=== PATIENT | male | born 1960 | race Caucasian/White ===

== ENCOUNTER 2025-03-09 10:01 | Inpatient (IN) ==
--- NOTE | 2025-02-09 12:58 | PAT Medication Instructions ---
Medication Instructions Date of Service February 09, 2025 Home Medications metoprolol tartrate 50 mg tablet 50 mg PO QAM naproxen sodium 220 mg tablet (Aleve) 220 mg PO BID PRN Pain ASK your surgeon for instructions naproxen sodium 220 mg tablet (Aleve) 220 mg PO BID PRN Pain Take morning of surgery With a small sip of water, OTHERWISE NOTHING TO EAT OR DRINK AFTER MIDNIGHT: metoprolol tartrate 50 mg tablet 50 mg PO QAM Other Notes If you have any questions please call us at [phone] or [phone] or [phone] or [phone]
--- NOTE | 2025-02-13 11:24 | Anesthesiology Consultation ---
Date of Service February 13, 2025 Assessment & Plan (1) Encounter for pre-operative examination: Chart Review Chart Review: Acceptable Risk for Surgery (pending surgeon ordered PCP clearance ) and Patient seen in Pre Admission Testing - Awaiting PCP clearance 02/17/25 (Dr Allan) Per PAT appt on 02/13/25, no recent illness/disease exposures, illness related symptoms, or recent illness/disease positive tests. Will leave to surgeon's discretion if preop Covid testing needed Teaching & Discussion Pre-Anesthesia Teaching/Discussion Notes: Instructed NPO after midnight before surgery,except medications with 15 cc of water. Medication instructions provided according to the PAT guidelines. History Surgery Operation Date: 03/09/25 09:05 Proposed Procedures p T12-L3, L5-S1 Decompression and Fusion, L3-L5 Hardware Removal, Spinal Cord Monitoring - Salazar Fuller DO Height/Weight Height: 5 ft 9 in Weight: 82.1 kg Allergies Allergy/AdvReac Type Severity Reaction Status Date / Time No Known Allergies Allergy Unverified 02/09/25 07:56 Medications Home Medications Medication Instructions Recorded Confirmed Last Taken metoprolol tartrate 50 mg tablet 50 mg PO QAM 02/09/25 02/09/25 Unknown naproxen sodium 220 mg tablet 220 mg PO BID PRN Pain 02/09/25 02/09/25 Unknown (Aleve) Past Medical History Medical History (Updated 02/13/25 @ 11:36 by Zahra Dickens PA-C) Heart murmur "slight" noted in the per patient- no recent mention of heart murmur per patient, no cardio no murmur noted at PAT visit 02/13/25 HTN (hypertension) Slow to wake up after anesthesia had issues once, not sure which procedure Snores no sleep study done; sleeps alone- witnessed apnea unknown Tremor Right hand- over the past several months - stable - will discuss with PCP at upcoming preop appt Exercise / Class Metabolic Activity III < 4 Walking/Shop/Light housework (no chest pain or SOB with flat surface ambulation- uses walker in public ) Past Family History Family History Other No family history of adverse response to anesthesia Past Surgical History Surgical History History of hand surgery right, "crush injury" History of lumbar fusion (2010) L3,4,5 Hx of cervical spine surgery (1992) unsure of level, mild ROM limits Past Anesthesia History No Hx of Anesthesia Complications (with exception to remote history of slow to wake (unsure of what surgery (either hand or neck surgery))- just groggy- no reintubation or ICU stay ) and No Family Hx of Anesthesia Complications History of PONV No Hx of PONV and No Hx of Motion Sickness Social History Smoking Status: Former smoker Smoking cigarettes per day: quit ~beginning of January 2025 Do You Dip or Chew Tobacco: No Hx Alcohol Use: Yes alcohol intake frequency: a few times a month Hx Substance Use: No substance use type: does not use Review of Systems Patient denies chest pain, shortness of breath at rest, reflux, cough, wheezing, palpitations. No hx of seizures, stroke, [place]. No hx of blood clots or blood transfusions Physical Exam Vital Signs VITALS BP 124/75 P 61 TEMP 97.5 SP02 98% RESP 16 Constitutional no acute distress ENMT Mouth: no TMJ clicking Thyromental Distance: < 3.5 Finger Breadths ( 2.5 ) Mallampati Class: II Front bottom tooth - permanent implant Missing molars and side teeth Neck + limited neck extension and + facial hair (advised to trim/shave ) Respiratory normal respiratory effort; no respiratory distress Auscultation: lungs clear to auscultation bilaterally; no wheezes Cardiovascular Rate/Rhythm: regular rate and regular rhythm Heart Sounds: no murmur Vessels: no carotid bruit Musculoskeletal Spine: + pain with cervical ROM Extremities: extremities normal to inspection Psychiatric Orientation: alert Lab Results Anesthesia Preop Results Results Anesthesia Widget: WBC 4.88 K/ul (4.8-10.8) 02/13/25 Hgb 13.9 g/dl (14.0-18.0) L 02/13/25 Hct 41.8 % (42.0-52.0) L 02/13/25 Plt 144 K/uL (130-400) 02/13/25 Na 139 mmol/L (136-145) 02/13/25 K 4.2 mmol/L (3.5-5.1) 02/13/25 Cl 105 mmol/L (98-107) 02/13/25 CO2 28 mmol/L (21-32) 02/13/25 BUN 29 mg/dl (6-23) H 02/13/25 Creat 1.00 mg/dl (0.6-1.4) 02/13/25 Glucose Level 92 mg/dl (70-99(Fasting)) 02/13/25 PT 10.6 Seconds (9.0-12.0) 02/13/25 PTT 26 Seconds (21-31) 02/13/25 INR 1.0 (0.9-1.1) 02/13/25 Urine Color Yellow 02/13/25 Urine Appearance Clear (Clear) 02/13/25 Urine pH 5.5 (4.5-7.5) 02/13/25 Urine Specific [place] 1.023 (1.000-1.030) 02/13/25 Urine Protein Negative (Negative) 02/13/25 Urine Glucose (UA) Negative (Negative) 02/13/25 Urine Ketones 1+ (Negative) H 02/13/25 Urine Blood Negative (Negative) 02/13/25 Urine Nitrite Negative (Negative) 02/13/25 Urine Bilirubin Negative (Negative) 02/13/25 Urine Urobilinogen Negative (Negative) 02/13/25 Urine Leukocyte Esterase Negative (Negative) 02/13/25 Blood Type B Positive 02/13/25 Antibody Screen NEGATIVE 02/13/25 Testing Electrocardiogram Date: 02/13/25 Findings: + NSR @ (60bpm ) Normal EKG per cardio Chest X-Ray Date: 02/13/25 Findings: + NAD FINDINGS: Heart size and pulmonary vasculature are normal. Lungs are mildly hyperexpanded. No consolidation or pleural effusion.
[2025-03-09] MEDS ORDERED: DEXAMETHASONE SOD INJ 4 MG/ML VIAL ONE (10:11)
[2025-03-09] MEDS ORDERED: GLYCOPYRROLATE 0.2 MG/ML VIAL ONE (10:11)
[2025-03-09] MEDS ORDERED: LIDOCAINE 2% 2 ML VIAL/AMP(20MG/ML) INFIL ONE (10:11)
[2025-03-09] MEDS ORDERED: ROCURONIUM BROMIDE 10 MG/ML 5 ML VIAL IV ONE (10:11)
[2025-03-09] MEDS ORDERED: ONDANSETRON INJ 2 MG/ML 2 ML VIAL ONE (10:11)
[2025-03-09] MEDS ORDERED: MIDAZOLAM HCL 1 MG/ML 2ML VIAL ONE (10:11)
[2025-03-09] MEDS ORDERED: PROPOFOL IV EMULSION 10 MG/ML 20 ML VIAL IV ONE (10:11)
[2025-03-09] MEDS ORDERED: SUGAMMADEX SODIUM 200 MG/2 ML VIAL IV ONE (10:12)
[2025-03-09] MEDS: LR 15ML/HR IV SCH (10:47)
[2025-03-09] MEDS: LR 60ML/HR IV SCH (10:47)
[2025-03-09] MEDS: CeleBREX 200 MG CAP PO SCH (10:47)
[2025-03-09] MEDS: GABAPENTIN 300 MG CAP PO SCH (10:48)
[2025-03-09] MEDS: ACETAMINOPHEN 500 MG TAB PO SCH (10:48)
--- NOTE | 2025-03-09 12:39 | History & Physical Bridge Note ---
Date of Service March 09, 2025 History & Physical Bridge Note I have examined the patient, reviewed the History & Physical and in the interval since the performance of the History & Physical I have noted the following changes of clinical significance: no changes noted
--- NOTE | 2025-03-09 12:41 | History & Physical Report ---
Date of Service March 09, 2025 Assessment & Plan (1) Multilevel lumbosacral spondylosis with radiculopathy: Plan: Decompression and fusion T12-L3, L5-S1, hardware removal L3-L5 History of Present Illness Chief Complaint: Back and leg pain Primary Care Provider: Be Allan This is a 65-year-old male with chronic persistent back and leg pain after failing since course of nonoperative care is here for surgical invention. Allergies Allergy/AdvReac Type Severity Reaction Status Date / Time No Known Allergies Allergy Verified 03/09/25 10:21 Home Medications Medication Instructions Recorded Confirmed Type metoprolol tartrate 50 mg tablet 50 mg PO QAM 02/09/25 03/09/25 History naproxen sodium 220 mg tablet 220 mg PO BID PRN Pain 02/09/25 03/09/25 History (Aleve) Past Med/Surg History Problem List (Updated 03/09/25 @ 12:40 by Salazar Fuller DO) Multilevel lumbosacral spondylosis with radiculopathy Encounter for pre-operative examination Medical History (Updated 03/09/25 @ 12:40 by Salazar Fuller DO) Tremor Right hand- over the past several months - stable - will discuss with PCP at upcoming preop appt Slow to wake up after anesthesia had issues once, not sure which procedure Heart murmur "slight" noted in the per patient- no recent mention of heart murmur per patient, no cardio no murmur noted at PAT visit 02/13/25 Snores no sleep study done; sleeps alone- witnessed apnea unknown HTN (hypertension) Surgical History Hx of cervical spine surgery (1992) unsure of level, mild ROM limits History of hand surgery right, "crush injury" History of lumbar fusion (2010) L3,4,5 Family History Other No family history of adverse response to anesthesia Social History Smoking Status: Former smoker Tobacco Type: Cigarettes Cigarettes Per Day: quit ~beginning of January 2025; Second Hand Exposure: No; Do You Dip or Chew Tobacco: No; Tobacco Cessation Education Requested by Patient: No Hx Alcohol Use: Yes Hx Substance Use: No Preferred Language: Urdu Communication Ability: Effective Video Game Creator Required: No Beliefs That Will Affect Care: None Current Living Situation: Alone Other Information That Helps Us Care for You: No Feels Safe at Home: Yes Safety Concerns: Feels Safe At This Time Assistive Devices: Glasses, Hearing Aid - Bilateral and Walker Assistive Devices Comment: dental implant Physical Exam Physical Exam: Patient is alert and oriented Heart regular rhythm Lungs clear Results & Data Results & Data Vital Signs (Past 12 Hours) Vital Signs Temp Pulse Resp BP Pulse Ox O2 Del Method 03/09/25 10:23 36.5 C 57 L 20 149/85 H 96 Room Air
[2025-03-09] MEDS ORDERED: ATROPINE SULFATE 0.1 MG/ML 10ML SYR IV PRN (12:43)
[2025-03-09] MEDS ORDERED: ONDANSETRON INJ 2 MG/ML 2 ML VIAL IV PRN ×2 (12:43→18:36)
[2025-03-09] MEDS ORDERED: HYDROmorphone INJ 2 MG/ML SYR/VIAL IV PRN (12:43)
[2025-03-09] MEDS: BUPIVACAINE/EPINEPHRINE 0.25% 1:200,000 30 ML VIAL ONE (13:34)
[2025-03-09] MEDS: ceFAZolin 330 MG/ML 1 GM VIAL ONE ×2 (13:34→14:39)
[2025-03-09] MEDS ORDERED: PHENYLEPHRINE 100MCG/ML 5ML SYR ONE (16:34)
[2025-03-09] MEDS: FLOSEAL HEMOSTATIC MATRIX 10ML TOP ONE (16:42)
--- NOTE | 2025-03-09 16:54 | Operative Report ---
Post Operative Report Pre & Post Diagnosis Operation Date: 03/09/25 11:25 Pre-Op Diagnosis: #1 multilevel Lumbosacral Spondylosis with Radiculopathy. #2 lumbar spinal stenosis Post-Op Diagnosis: Same I identified the patient and participated in the time-out.: Yes Procedure Operation Date: 03/09/25 11:25 Actual Procedures #1 removal of posterior instrumentation L3-L5. #2 exploration of fusion L3-L5 #3 lumbar decompression with bilateral medial facetectomies and foraminotomies T12-L1, L1-L2, L2-L3, and L5-S1 with bilateral medial facetectomies and fo raminotomies. #4 posterior spinal fusion T12-S1. #5 placement of posterior segmental instrumentation T12-S1 using camber. #6 interbody fusion L2-L3 L5-S1. #7 placement of 12 x 26 mm Spira cage at L2-L3 and 15 x 26 mm x 2 at L5-S1. #8 placement locally harvested morselized autograft in the posterior gutters. Placement infuse collagen sponge, with Koros in the posterior lateral gutters and os design interbody space. #10 application of versa wrap over the exposed dura. Surgeon Salazar Fuller, DO Farm Service Adviser Liza Carter Estimated Blood Loss 1,100 Findings Consistent with Post-Op Diagnosis Specimens None Indications This is a 65-year-old male who presents from his diagnosis of failed course of nonoperative care is here for surgical invention. Description of Procedure Patient was met with identified informed consent obtained. Patient was then taken to the operative suite underwent intubation placed in a prone position on the Matias table on top of the Cedrick frame. All bony prominences well-padded I suspected to ensure no external pressure placed upon them. This point the lumbar spine was prepped and draped in a sterile fashion. Sharp dissection with the assistance of Bovie cautery is performed down to and exposing the lamina and transverse processes of T12 L1-L2 instrumentation at L3-L4-L5 and the sacral ala bilaterally. And then proceeded to remove the hardware bilaterally explored the fusion mass noting it to be mature and intact. And then formed a complete laminectomy of L5 with bilateral medial facetectomies and foraminotomies addressing severe spinal stenosis and excision of facet cyst. Then proceeded to perform a complete laminectomy of L2, L1 and partial laminectomy of T12 including bilateral medial facetectomies to address all subarticular and foraminal stenosis. Pedicle screws were then placed in T12 L1-L2-L3 L5 and S1 levels bilaterally with assistance of fluoroscopy and the appropriately sized liv cuts contoured and placed. By way of a transforaminal approach on the right a discectomy of L5-S1 was performed endplates curetted to subcortical bleeding bone and a 15 x 26 mm spiral cage tapped into position. Then proceeded to the left transforaminal region at L5-S1. Again discectomy performed. Endplates guided to subcortical bony bone. A second 15 x 26 mm spiral cage tapped in position. Then proceeded to L2-L3 by way of a transforaminal approach on the left complete discectomy was performed endplates corrected to subcortical bleeding bone and a 12 x 26 mm spiral cage tapped into position. Please note all cages were filled with os design bone graft. Rods were then locked in a final position bilaterally. The transverse processes of T12 L1-L2-L3 L5 and sacral ala burred to subcortical bleeding bone. Infuse collagen sponge bath Koros and local autograft placed in the posterior lateral gutters. First wrap placed over the exposed dura. 15 round DOMENIC drain inserted. The incision was then closed with 1 Vicryl the fascia 2-0 Vicryl subcutaneously and 4 Monocryl for final skin closure. Steri-Strips sterile dressing placed. Patient waken taken PACU stable condition. Please note Liza Carter was present out the entire procedure involved the patient positioning complex portions of the surgery and final skin closure. Im ordering 10 grams of Collagen Powder ([facility] A6010 Primary Dressing) and 10 bordered super absorbent ([facility] A6196 Secondary Dressing) to treat an incision wound that was caused by a spine procedure. The incision is approximately 2 cm(W) x 2 cm(L) down to the spinal column and epidural space 2 cm (D) in size and is a full thickness wound showing no signs of infection. Collagen comes in 1 gram packets so 10 packets were ordered. Given the size of the wound, with moderate exudate I chose to order a 10 day supply. The patient will be provided instructions for proper application of the collagen wound kit. The patient will be asked to apply the collagen powder daily and then cover it with sterile dressings dispensed. Collagen was selected as I expect the collagen to attract monocytes and fibroblasts, act as a sacrificial substrate for MMPs, and ultimately proved a matrix for tissue and vessel growth. The collagen will act as a primary dressing in this scenario. It is medically necessary for proper healing of these wounds to improve bioavailability and contact with each wound surface, this is also to help prevent infection of wounds and promote healing ultimately leading to a better healing outcome and limit the risk of infection. I attest to the content of the Intraoperative Record and any orders documented therein. Any exceptions are noted below.
[2025-03-09] MEDS ORDERED: ALUMINUM/MAGNESIUM SUSP 30 ML UDC PO PRN (18:36)
[2025-03-09] MEDS ORDERED: METOCLOPRAMIDE HCL INJ 5 MG/ML 2 ML VIAL IV PRN (18:36)
[2025-03-09] MEDS ORDERED: PROMETHAZINE 12.5 MG/50.5 ML BAG IV PRN (18:36)
[2025-03-09] MEDS ORDERED: ONDANSETRON 4 MG OD TAB PO PRN (18:36)
[2025-03-09] MEDS ORDERED: DO NOT ADMINISTER PNEUMOCOCCAL VACCINE PRN (18:36)
[2025-03-09] MEDS ORDERED: HYDROmorphone INJ 1 MG/ML SYRINGE IV PRN (18:36)
[2025-03-09] MEDS ORDERED: DO NOT ADMINISTER FLU VACCINE PRN (18:36)
[2025-03-09] MEDS ORDERED: SOD PHOSPHATE/SOD BIPHOSPHATE ENEMA 132 ML BTL PR PRN (18:36)
[2025-03-09] MEDS ORDERED: HYDROmorphone INJ 0.5 MG/0.5 ML SYR IV PRN (18:36)
[2025-03-09] MEDS ORDERED: NALOXONE HCL 0.4 MG/1 ML VIAL/CARP IV PRN (18:36)
[2025-03-09] MEDS ORDERED: FAMOTIDINE 20 MG TAB PO PRN (18:36)
[2025-03-09] MEDS ORDERED: diphenhydrAMINE Capsule 25 MG CAP PO PRN (18:36)
[2025-03-09] MEDS ORDERED: LORazepam 0.5 MG TAB PO PRN (18:36)
--- NOTE | 2025-03-09 18:45 | Hospitalist Consultation ---
Date of Consultation March 09, 2025 Assessment & Plan (1) Multilevel lumbosacral spondylosis with radiculopathy: (2) S/P spinal surgery: Patient is a 65-year-old male with past medical history significant for HTN who is being seen in consultation for routine postoperative medical management after undergoing elective decompression and fusion at T12-L3/L5-S1 and hardware removal at L3-L5 performed [address] Dr[address] Fuller earlier today. Per primary service for pain control, wound care, anticoagulation and activities Continue incentive spirometry, PT/OT when appropriate as per primary team Monitor H/H for ABLA (preop Hgb = 13.9; EBL = 1.1L) and transfuse blood products PRN (3) Postoperative hypotension: Notable postop hypotension w/ most recent BP documented at 82/45 Pt asymptomatic lying in bed Hold home Lopressor Stat BMP and CBC pending 500cc NSS bolus plus additional 1L NSS IV albumin 50gm Follow BP trend and labs --> pt signed out to area field manager, Dr. Ramirez, to f/u on via TT DVT Prophylaxis: As per primary service PCP: Be Allan DO [[facility]] Disposition: D/c planning as per primary service Thank you for this consultation. We will follow the patient with you during their hospital stay. You can reach a [facility] via [employer]. Patient seen in collaboration with Dr. Horvath. Please see addendum. I spent a total of 48 minutes coordinating, documenting, and providing care for this patient excluding time spent in the performance of separately billed services or time spent by another provider/QHP. This included personally reviewing all current laboratories and imaging studies, medical reconciliation, outpatient chart review and discussion with specialists. This chart was completed in part utilizing Speech Voice Recognition Software. Grammatical errors, random word insertions, pronoun errors, and incomplete sentences are an occasional consequence of this system due to software limitations, ambient noise, and hardware issues. Any formal questions or concerns about the content, text, or information contained within the body of this dictation should be directly addressed to the provider for clarification. Supervising Physician Co-Signing Physician Notes 65-year-old male was seen and examined at bedside as a medical consult status post spine surgery. He was lying in bed, on room air, NAD. He denies any shortness of breath/palpitation/chest pain/dizziness. Patient lost about 1.1 L of blood during operation today. Blood pressure running soft. Will continue NSS at 125 mL an hour for 1 bags, IV albumin 2 bag. Hold BP meds. Get CBC and BMP stat, possible transfuse blood if significant drop in hemoglobin given low blood pressure. Patient reports improvement in his BLE radicular symptoms after the surgery, reports operative site pain under control. On exam: Patient on room air, lower back dressing without soakage, DOMENIC drain with minimal serosanguineous collection noted. Rest of the examination as above. Total time spent independently: 14 minutes. I have seen and examined the patient and have discussed the case with the provider above. I agree with the assessment and plan as stated. History of Present Illness Reason for Consultation: Routine postoperative medical management Requesting Physician: Salazar Fuller DO Attending Physician: Salazar Fuller DO History of Present Illness Patient is a 65-year-old male with past medical history significant for HTN who is being seen in consultation for routine postoperative medical management after undergoing elective decompression and fusion at T12-L3/L5-S1 and hardware removal at L3-L5 performed by Dr. Fuller earlier today. History obtained from the patient and associated chart review. Patient endorses adequate pain control postoperatively. Has been hypotensive postoperatively however patient denies any lightheadedness/dizziness or visual disturbances. Of note, patient did have an EBL of 1.1L during surgery. Patient endorses a dry mouth but is tolerating sips of water without issue. Denies any chest pain or SOB. Has Ordonez catheter in place which is draining clear yellow urine without issue. Allergies Allergy/AdvReac Type Severity Reaction Status Date / Time No Known Allergies Allergy Verified 03/09/25 10:21 Home Medications Medication Instructions Recorded Confirmed Type metoprolol tartrate 50 mg tablet 50 mg PO QAM 02/09/25 03/09/25 History naproxen sodium 220 mg tablet 220 mg PO BID PRN Pain 02/09/25 03/09/25 History (Aleve) Patient History Medical History Tremor Right hand- over the past several months - stable - will discuss with PCP at upcoming preop appt Slow to wake up after anesthesia had issues once, not sure which procedure Heart murmur "slight" noted in the per patient- no recent mention of heart murmur per patient, no cardio no murmur noted at PAT visit 02/13/25 Snores no sleep study done; sleeps alone- witnessed apnea unknown HTN (hypertension) Surgical History Hx of cervical spine surgery (1992) unsure of level, mild ROM limits History of hand surgery right, "crush injury" History of lumbar fusion (2010) L3,4,5 Family History Other No family history of adverse response to anesthesia Social History Smoking Status: Former smoker Tobacco Type: Cigarettes Cigarettes Per Day: quit ~beginning of January 2025; Second Hand Exposure: No; Do You Dip or Chew Tobacco: No; Tobacco Cessation Education Requested by Patient: No Hx Alcohol Use: Yes Hx Substance Use: No Preferred Language: Kittitian Communication Ability: Effective Water Conservationist Required: No Beliefs That Will Affect Care: None Current Living Situation: Alone Other Information That Helps Us Care for You: No Feels Safe at Home: Yes Safety Concerns: Feels Safe At This Time Assistive Devices: Glasses, Hearing Aid - Bilateral and Walker Assistive Devices Comment: dental implant Review of Systems Review of Systems: At least ten systems reviewed and negative, except as noted in the HPI. Physical Exam Physical Exam: General: WD/WN, NAD, laying down in bed, A&Ox3, conversing appropriately but appears lethargic postoperatively HEENT: Normocephalic, atraumatic, external ear and nose normal, oropharynx dry Respiratory: Normal respiratory effort, lungs clear to auscultation bilaterally Cardiovascular: Regular rate, rhythm, normal peripheral pulses, no BLE edema Abdomen/GI: Normal bowel sounds, soft, nontender to palpation in all quadrants : Ordonez catheter intact and draining clear yellow urine without issue Extremities/MSK: No cyanosis or clubbing, surgical dressing on back C/D/I, DOMENIC drain x 1 intact and draining sanguineous output Neurologic: No overt focal deficits, CN's II-XI not formally tested but appear grossly intact bilaterally Results & Data Results & Data Vital Signs (Past 12 Hours) Vital Signs Temp Pulse Pulse Resp BP Pulse Ox O2 Del Method 03/09/25 18:30 36.7 C 76 15 94/56 L 96 Room Air 03/09/25 18:20 76 16 105/54 L 93 Room Air 03/09/25 18:10 79 14 103/60 93 Room Air 03/09/25 18:00 36.4 C L 84 15 110/64 95 Nasal Cannula 03/09/25 17:50 77 12 106/66 100 Oxymask 03/09/25 17:40 88 15 102/67 100 Oxymask 03/09/25 17:30 93 H 16 103/69 100 Oxymask 03/09/25 17:20 102 H 16 99/66 L 100 Oxymask 03/09/25 17:12 36.8 C 70 20 111/69 100 Oxymask 03/09/25 10:23 36.5 C 57 L 20 149/85 H 96 Room Air O2 Flow Rate 03/09/25 18:30 03/09/25 18:20 03/09/25 18:10 03/09/25 18:00 2 03/09/25 17:50 4 03/09/25 17:40 6 03/09/25 17:30 10 03/09/25 17:20 10 03/09/25 17:12 10 03/09/25 10:23
--- NOTE | 2025-03-09 18:47 | Anesthesiology Progress Note ---
Date of Service March 09, 2025 Anesthesia Post Procedure Vital Signs Vital Signs: Temp Pulse Pulse Resp BP Pulse Ox O2 Del Method 03/09/25 18:30 36.7 C 76 15 94/56 L 96 Room Air 03/09/25 18:20 76 16 105/54 L 93 Room Air 03/09/25 18:10 79 14 103/60 93 Room Air 03/09/25 18:00 36.4 C L 84 15 110/64 95 Nasal Cannula 03/09/25 17:50 77 12 106/66 100 Oxymask 03/09/25 17:40 88 15 102/67 100 Oxymask 03/09/25 17:30 93 H 16 103/69 100 Oxymask 03/09/25 17:20 102 H 16 99/66 L 100 Oxymask 03/09/25 17:12 36.8 C 70 20 111/69 100 Oxymask 03/09/25 10:23 36.5 C 57 L 20 149/85 H 96 Room Air O2 Flow Rate 03/09/25 18:30 03/09/25 18:20 03/09/25 18:10 03/09/25 18:00 2 03/09/25 17:50 4 03/09/25 17:40 6 03/09/25 17:30 10 03/09/25 17:20 10 03/09/25 17:12 10 03/09/25 10:23 Pain Intensity Back: Pain Intensity: 3 Transfer of Care Handoff Completed per policy Notes Mental Status: alert / awake / arousable and participated in evaluation Patient Amnestic to Procedure: Yes Nausea / Vomiting: adequately controlled Pain: adequately controlled Airway Patency, RR, SpO2: stable & adequate BP & HR: stable & adequate Hydration State: stable & adequate Anesthetic Complications: no major complications apparent and Pt Satisfied with anesthetic care
[2025-03-09] MEDS: SODIUM CHLORIDE 0.9% 500 ML IV ONE (19:21)
[2025-03-09 19:42] LABS: Hematocrit (blood only) 32.0 % (42.0-52.0); Hemoglobin 10.4 g/dl (14.0-18.0); Mean Corpuscular Hemoglobin 30.6 pg (25.0-34.0); Mean Corpuscular Volume 94.1 fL (80.0-100.0); Platelet Count 125 K/uL (130-400); RDW Standard Deviation 44.9 fL (36.4-46.3); Red Blood Count 3.40 M/uL (4.70-6.10); White Blood Count 12.00 K/ul (4.8-10.8)
[2025-03-09] MEDS: ALBUMIN 25% 25 GM/100 ML VIAL IV SCH (19:48)
[2025-03-09] MEDS: SODIUM CHLORIDE 0.9% 1,000 ML IV SCH (19:55)
[2025-03-09 20:01] LABS: Anion Gap 8.0 (3-11); Blood Urea Nitrogen 20.0 mg/dl (6-23); Calcium 8.1 mg/dl (8.6-10.3); Carbon Dioxide 24.0 mmol/L (21-32); Chloride 108.0 mmol/L (98-107); Creatinine Clr Calc Pharmacy 65.5 ml/min; Glucose 162.0 mg/dl (70-99(Fasting)); Potassium 4.1 mmol/L (3.5-5.1); Sodium 140.0 mmol/L (136-145)
[2025-03-09 20:02] LABS: Immature Granulocytes # (auto) 0.09 K/uL (0.01-0.20); Immature Granulocytes % (auto) 0.8 %
[2025-03-09] MEDS: DOCUSATE SODIUM/SENNA 50/8.6MG TAB PO SCH (20:35)
[2025-03-09] MEDS: ACETAMINOPHEN 1,000 MG/100 ML VIAL IV PRN (22:10)
[2025-03-10 05:56] LABS: Hematocrit (blood only) 24.2 % (42.0-52.0); Hemoglobin 7.8 g/dl (14.0-18.0); Immature Granulocytes # (auto) 0.04 K/uL (0.01-0.20); Immature Granulocytes % (auto) 0.4 %; Mean Corpuscular Hemoglobin 30.6 pg (25.0-34.0); Mean Corpuscular Volume 94.9 fL (80.0-100.0); Platelet Count 107 K/uL (130-400); RDW Standard Deviation 45.1 fL (36.4-46.3); Red Blood Count 2.55 M/uL (4.70-6.10); White Blood Count 9.05 K/ul (4.8-10.8)
[2025-03-10] MEDS: POLYETHYLENE (MIRALAX) 17 GM PACK PO SCH (06:01)
[2025-03-10 06:10] LABS: Anion Gap 6.0 (3-11); Blood Urea Nitrogen 20.0 mg/dl (6-23); Calcium 7.7 mg/dl (8.6-10.3); Carbon Dioxide 26.0 mmol/L (21-32); Chloride 106.0 mmol/L (98-107); Creatinine Clr Calc Pharmacy 83.5 ml/min; Glucose 129.0 mg/dl (70-99(Fasting)); Magnesium 1.7 mg/dl (1.7-2.4); Potassium 4.3 mmol/L (3.5-5.1); Sodium 138.0 mmol/L (136-145)
[2025-03-10 06:23] LABS: RBC Morphology Unremarkable
--- NOTE | 2025-03-10 07:37 | Fluoroscopy Report ---
FL lumbar spine 2-3V CLINICAL HISTORY: T12-L3, L5-S1 D/F L3-L5 REMOVAL COMPARISON STUDY: Lumbar spine fluoroscopic images December 13, 2010. Fluoroscopy time: 28 seconds. Number of fluoroscopic images: 5. Ka,r: 12.84 mGy. FINDINGS: Fluoroscopy was provided during hardware removal. Previous L4-L5 disc space is noted. Inter kassandra L2-L3 and L5-S1 discectomy with interbody spacer placement as noted. There are bilateral pedicle screws at the T12, L1, L2, L3, L4-5 and S1 levels with interconnecting rods. Hardware is intact. IMPRESSION: Fluoroscopy provided during hardware removal and subsequent multilevel decompression and fusion extending from T12 through S1, as described above. ACT 112: Negative or not required by law. Electronically signed by: Ronny Márquez M.D. 03/10/2025 7:35 AM
[2025-03-10] MEDS ORDERED: SODIUM CHLORIDE 0.9% 100 ML IV PRN (07:38)
[2025-03-10] MEDS: SODIUM CHLORIDE 0.9% 500 ML IV ONE (07:51)
[2025-03-10] MEDS: diphenhydrAMINE Capsule 25 MG CAP PO ONE (07:54)
[2025-03-10] MEDS: ACETAMINOPHEN 325 MG TAB PO ONE (07:54)
[2025-03-10] MEDS ORDERED: METOPROLOL TARTRATE 50 MG TAB PO SCH (09:00)
[2025-03-10] MEDS: dexAMETHasone 6 MG in SYRINGE 0 ML IV SCH (09:25)
[2025-03-10] MEDS: COUGH DROP (SUGAR FREE) LOZ 24 LOZ/1 BOX BUCCAL ONE (09:32)
--- NOTE | 2025-03-10 10:24 | Orthopedic Progress Note ---
Date of Service March 10, 2025 Assessment & Plan (1) Multilevel lumbosacral spondylosis with radiculopathy: Plan: At this time he is receiving a unit of blood. Will initiate physical therapy later today. Admission and Anticipated Discharge Date Admission Date: March 09, 2025 Subjective Back pain is controlled leg pain improved Physical Exam Physical Exam: Patient is currently in bed. Discussed active testing. Results & Data Vital Signs (Past 12 Hours) Vital Signs Temp Pulse Pulse Resp BP BP BP 03/10/25 10:07 36.6 C 73 16 103/62 03/10/25 09:29 103/61 03/10/25 09:07 36.3 C L 70 16 98/58 L 03/10/25 08:34 36.4 C L 73 16 99/61 L 03/10/25 08:22 36.6 C 73 18 99/59 L 03/10/25 08:04 36.7 C 75 16 96/54 L 03/10/25 07:52 70 18 105/56 L 03/10/25 07:33 91/52 L 03/10/25 07:29 36.8 C 65 17 90/43 L 03/10/25 05:32 36.5 C 73 18 106/57 L 03/10/25 01:30 36.6 C 76 18 100/52 L Pulse Ox O2 Del Method 03/10/25 10:07 100 03/10/25 09:29 03/10/25 09:07 100 03/10/25 08:34 03/10/25 08:22 100 03/10/25 08:04 99 03/10/25 07:52 99 Room Air 03/10/25 07:33 03/10/25 07:29 100 Room Air 03/10/25 05:32 100 Room Air 03/10/25 01:30 100 Room Air Queries Orthopedic Spine Acute Posthemorrhagic Anemia: Yes
--- NOTE | 2025-03-10 12:00 | Hospitalist Progress Note ---
Date of Service March 10, 2025 Assessment & Plan (1) S/P spinal surgery: (2) Multilevel lumbosacral spondylosis with radiculopathy: (3) Acute blood loss anemia: (4) Postoperative hypotension: (5) HTN (hypertension): (6) Urinary retention: Plan: Patient is a 65-year-old male with past medical history significant for HTN who is being seen in consultation for routine postoperative medical management after undergoing elective decompression and fusion at T12-L3/L5-S1 and hardware removal at L3-L5 performed [address] Dr[address] Fuller earlier today. S/p spinal surgery POD#7 s/p T12-L3/L5-S1 and hardware removal at L3-L5 performed by Dr. Fuller Per ortho for pain control, wound care, anticoagulation and activities Continue incentive spirometry, PT/OT when appropriate defer any further imaging to Dr. Fuller given increased pain complaint Post-op hypotension in setting of acute blood loss anemia EBL 1.1 L per op report, hypotensive following surgery but asymptomatic laying flat He had received IVF and albumin as well as PRBC transfusion on 03/10/25. His home metoprolol has been on hold. Metoprolol tartrate has been restarted at 12.5mg 03/13/25 as blood pressures had improved and Hgb stable. Denies further episode lightheadedness over past 24 hours Hgb stable at 8.8, s/p 1 unit PRBC on 03/10. pre-op hgb: 13.9 Was given IV venofer 03/13/25 Started daily ferrous sulfate Would recommend outpatient CBC in one week for monitoring Urinary Retention Urinary retention is likely multifactorial including underlying BPH/bladder outlet obstruction, recent surgery/anesthesia, medications, constipation Ordonez cath in place Urology consulted and Recommend maintain Ordonez catheter for 1 week, started tamsulosin, and urology will arrange outpatient follow-up with our service for voiding trial and ongoing management. HTN With recent hypotension that has since improved home metoprolol was on hold Metoprolol 12.5mg was started on 03/13/25 (Decreased from home dose of 50mg daily) Will need outpatient follow up with PCP for recheck in one week for further dosage instructions DVT Prophylaxis: As per primary service PCP: Be Allan DO [[facility]] Disposition: Has pending auth for [facility]. D/C planning as per primary service Pt was seen and examined in collaboration with Dr. Perez, please see addendum I spent a total of 31 minutes reviewing notes, outpatient records, labs, medication, coordinating, documenting and providing care for this patient excluding time spent in the performance of separately billed services and excluding time spent by another provider/QHP. Plan Patient is a 65-year-old male with past medical history significant for HTN who is being seen in consultation for routine postoperative medical management after undergoing elective decompression and fusion at T12-L3/L5-S1 and hardware removal at L3-L5 performed by Dr. Fuller earlier today. S/p spinal surgery POD#1 s/p T12-L3/L5-S1 and hardware removal at L3-L5 performed by Dr. Fuller Per ortho for pain control, wound care, anticoagulation and activities Continue incentive spirometry, PT/OT when appropriate Post-op hypotension in setting of acute blood loss anemia EBL 1.1 L per op report, hypotensive following surgery but asymptomatic laying flat Hold home lopressor, metoprolol Given 1.5 NSS post-op as well as albumin 50ml x 2 since surgery per chart police judge notified this AM with pt hypotensive 90/50s, asymptomatic. Hgb 7.8 (pre-op hgb 10.4) Transfused 1u prbcs, NSS 500ml x 1 with improved BP to 103/62 when evaluated Post transfusion H&H pending Daily CBC DVT Prophylaxis: As per primary service PCP: Be Allan DO [[facility]] Disposition: D/c planning as per primary service Thank you for this consultation. We will follow the patient with you during their hospital stay. You can reach a member of the [facility]04 via [employer]. Patient seen in collaboration with Dr. Hallman. I spent a total of 50 minutes coordinating, documenting, and providing care for this patient excluding time spent in the performance of separately billed services or time spent by another provider/QHP. Admission and Anticipated Discharge Date Admission Date: March 09, 2025 Supervising Physician Co-Signing Physician Notes delayed entry date of service noted above Attending Addendum: Case reviewed with the advanced practitioner. I have reviewed the advanced practitioner's documentation on the date of service referenced in note, and I agree with, and take responsibility for the plan of care. please refer to her notes for full details patient seen and examined, records reviewed by myself as well diagnoses and plan of care as per advanced practitioner's notes I spent a total of 35 minutes coordinating, documenting, and providing care for this patient, excluding time spent in the performance of separately billed services or time spent by another provider/QHP. Salvador Hallman MD Subjective Seen and examined in 320-1. Hypotensive since surgery, receiving 1L NSS overnight as well as 50ml albumin x 2. Hypotensive 90/50s this AM but asymptomatic at rest. Ordered 1u prbcs and NSS 500ml x 1. Seen while receiving t hese and feeling improved. No lightheadedness, CP, palpitations or SOB. Pain controlled at surgical site. No post op flatus yet. Ordonez catheter in place draining urine. Review of Systems Review of Systems: At least ten systems reviewed and negative except as noted in the HPI. Physical Exam Physical Exam: Gen: WD/WN, NAD, resting in bed, A&Ox3, appears pale HEENT: Normocephalic, atraumatic, mucous membranes moist Lung: Clear to Auscultation bilaterally Heart: Regular rate, regular rhythm Abdomen: Soft, NT, ND +BS x 4 Extremities: Spinal dressing c/d/i. DOMENIC drain with serosanguineous output, no edema Skin: Warm, no rash Results & Data Results & Data Vital Signs (Past 12 Hours) Vital Signs Temp Pulse Pulse Resp BP BP BP 03/10/25 11:07 36.8 C 76 17 111/63 03/10/25 11:06 36.6 C 74 15 101/60 03/10/25 10:07 36.6 C 73 16 103/62 03/10/25 09:29 103/61 03/10/25 09:07 36.3 C L 70 16 98/58 L 03/10/25 08:34 36.4 C L 73 16 99/61 L 03/10/25 08:22 36.6 C 73 18 99/59 L 03/10/25 08:04 36.7 C 75 16 96/54 L 03/10/25 07:52 70 18 105/56 L 03/10/25 07:33 91/52 L 03/10/25 07:29 36.8 C 65 17 90/43 L 03/10/25 05:32 36.5 C 73 18 106/57 L 03/10/25 01:30 36.6 C 76 18 100/52 L Pulse Ox O2 Del Method 03/10/25 11:07 96 03/10/25 11:06 100 03/10/25 10:07 100 03/10/25 09:29 03/10/25 09:07 100 03/10/25 08:34 03/10/25 08:22 100 03/10/25 08:04 99 03/10/25 07:52 99 Room Air 03/10/25 07:33 03/10/25 07:29 100 Room Air 03/10/25 05:32 100 Room Air 03/10/25 01:30 100 Room Air Laboratory Results Short CBC 03/09/25 03/10/25 Range/Units 19:19 05:38 WBC 12.00 H 9.05 (4.8-10.8) K/ul Hgb 10.4 L 7.8 L (14.0-18.0) g/dl Hct 32.0 L 24.2 L (42.0-52.0) % Plt Count 125 L 107 L (130-400) K/uL BMP 03/09/25 03/10/25 19:19 05:38 Sodium 140 138 Potassium 4.1 4.3 Chloride 108 H 106 Carbon Dioxide 24 26 BUN 20 20 Creatinine 1.11 0.87 Glucose 162 H 129 H Calcium 8.1 L 7.7 L Diagnostic Findings Lumbar Spine X-Ray 03/09/25 11:25 FL lumbar spine 2-3V CLINICAL HISTORY: T12-L3, L5-S1 D/F L3-L5 REMOVAL COMPARISON STUDY: Lumbar spine fluoroscopic images December 13, 2010. Fluoroscopy time: 28 seconds. Number of fluoroscopic images: 5. Ka,r: 12.84 mGy. FINDINGS: Fluoroscopy was provided during hardware removal. Previous L4-L5 disc space is noted. Interval L2-L3 and L5-S1 discectomy with interbody spacer placement as noted. There are bilateral pedicle screws at the T12, L1, L2, L3, L4-5 and S1 levels with interconnecting rods. Hardware is intact. IMPRESSION: Fluoroscopy provided during hardware removal and subsequent multilevel decompression and fusion extending from T12 through S1, as described above. ACT 112: Negative or not required by law. Electronically signed by: Ronny Márquez M.D. 03/10/2025 7:35 AM (5) HTN (hypertension) Hypertension type: unspecified Qualified Code(s): I10 - Essential (primary) hypertension
[2025-03-10 13:31] LABS: Hematocrit (blood only) 26.9 % (42.0-52.0); Hemoglobin 9.0 g/dl (14.0-18.0)
[2025-03-10] MEDS: ACETAMINOPHEN 500 MG TAB PO PRN (17:04)
[2025-03-10] MEDS: SODIUM CHLORIDE 0.9% 1,000 ML IV SCH (18:40)
[2025-03-11 06:07] LABS: Hematocrit (blood only) 25.8 % (42.0-52.0); Hemoglobin 8.7 g/dl (14.0-18.0); Mean Corpuscular Hemoglobin 31.3 pg (25.0-34.0); Mean Corpuscular Volume 92.8 fL (80.0-100.0); Platelet Count 108 K/uL (130-400); RDW Standard Deviation 46.1 fL (36.4-46.3); Red Blood Count 2.78 M/uL (4.70-6.10); White Blood Count 8.44 K/ul (4.8-10.8)
[2025-03-11 06:26] LABS: Anion Gap 3.0 (3-11); Blood Urea Nitrogen 13.0 mg/dl (6-23); Calcium 7.9 mg/dl (8.6-10.3); Carbon Dioxide 27.0 mmol/L (21-32); Chloride 110.0 mmol/L (98-107); Creatinine Clr Calc Pharmacy 81.6 ml/min; Glucose 99.0 mg/dl (70-99(Fasting)); Potassium 3.8 mmol/L (3.5-5.1); Sodium 140.0 mmol/L (136-145)
[2025-03-11] MEDS: SODIUM CHLORIDE 0.9% 500 ML IV ONE (10:01)
--- NOTE | 2025-03-11 11:08 | Orthopedic Progress Note ---
Date of Service March 11, 2025 Assessment & Plan (1) Multilevel lumbosacral spondylosis with radiculopathy: Plan: At this time we will continue physical therapy monitor his DOMENIC output anticipate possible discharge home in the next few days. Admission and Anticipated Discharge Date Admission Date: March 09, 2025 Subjective Back pain is controlled leg symptoms are markedly improved. Tolerated physical therapy this morning. Physical Exam Physical Exam: Patient is in the chair at the bedside. Comfortable. Good strength testing. Results & Data Vital Signs (Past 12 Hours) Vital Signs Temp Pulse Resp BP BP Pulse Ox O2 Del Method 03/11/25 10:42 109/64 03/11/25 07:44 36.4 C L 79 16 97/58 L 97 Room Air 03/10/25 23:09 36.5 C 86 18 106/63 96 Room Air Queries Orthopedic Spine Acute Posthemorrhagic Anemia: Yes
--- NOTE | 2025-03-11 14:49 | Hospitalist Progress Note ---
Date of Service March 11, 2025 Assessment & Plan (1) S/P spinal surgery: (2) Multilevel lumbosacral spondylosis with radiculopathy: (3) Acute blood loss anemia: (4) Postoperative hypotension: (5) HTN (hypertension): Plan 65-year-old male with past medical history significant for HTN who is being seen in consultation for routine postoperative medical management after undergoing elective decompression and fusion at T12-L3/L5-S1 and hardware removal at L3-L5 performed [address] Dr[address] Fuller. S/p spinal surgery POD#2 s/p T12-L3/L5-S1 and hardware removal at L3-L5 performed by Dr. Fuller Per ortho for pain control, wound care, anticoagulation and activities Continue incentive spirometry, PT/OT when appropriate Post-op hypotension in setting of acute blood loss anemia EBL 1.1 L per op report, hypotensive following surgery but asymptomatic laying flat Given 1.5 NSS post-op as well as albumin 50ml x 2 since surgery per chart review 03/10: pt hypotensive 90/50s, asymptomatic. Hgb 7.8 (pre-op hgb 10.4), Transfused 1u prbcs, NSS 500ml x 1 with improved BP to 103/62 when evaluated BPs remain soft today, patient minimally symptomatic, NSS 500ml bolus x 1 with improvement Hgb 8.7, high output DOMENIC noted, will recheck H/H this afternoon Continue to hold [employer] metoprolol HTN Holding metoprolol as above DVT Prophylaxis: TEDs/SCDs as per spine ortho PCP: Be Allan DO [[facility]] Disposition: anticipate d/c home Thank you for this consultation. We will follow the patient with you during their hospital stay. You can reach a member of the [facility] Team 02/04 via [employer]. Patient seen in collaboration with Dr. Perez. I spent a total of 35 minutes coordinating, documenting, and providing care for this patient excluding time spent in the performance of separately billed services or time spent by another provider/QHP. Admission and Anticipated Discharge Date Admission Date: March 09, 2025 Supervising Physician Co-Signing Physician Notes Pt seen and examined by me, care coordinated w/ L. NAHID Eckert, pls refer to her note above for further detail. Pt is currently sitting up in chair in NAD. Pt is awake, alert, converses easily. Reports some lightheadedness today when walking hallway. Otherwise den ies any fever, chills, chest pain, shortness of breath, abd. pain, n/v. Lungs CTAB, heart sounds regular, abdomen soft, pt is moving extremities. Hgb 8.7 this AM, re-check this PM 9.3. BP this PM 136/67. Will cont. to monitor. MD Chris Subjective Follow up for medical management, s/p back surgery. Patient seen examined. Sitting up in the chair. Ambulated in the duque with PT, reports some mild lightheadedness. Reports pain is well controlled. No chest pain or shortness of breath. Denies abdominal pain and nausea. + flatus however no BM, reports he typically only has BM 1x/week Review of Systems Review of Systems: ROS per HPI, all other systems reviewed and negative Physical Exam Constitutional: WD/WN, vitals as above no acute distress Respiratory: normal respiratory effort, lungs clear to auscultation Cardiovascular: Rate/Rhythm: regular rate and regular rhythm Vessels: normal peripheral pulses Extremities: no edema Musculoskeletal: s/p back surgery, drain in place with serosanguineous drainage, strength strong and equal BLE Skin: no rashes, warm and dry Neurologic: no focal motor deficits Psychiatric: A+Ox3, euthymic affect Results & Data Results & Data Vital Signs (Past 12 Hours) Vital Signs Temp Pulse Resp BP BP Pulse Ox O2 Del Method 03/11/25 10:42 109/64 03/11/25 07:44 36.4 C L 79 16 97/58 L 97 Room Air Laboratory Results Short CBC 03/11/25 Range/Units 05:36 WBC 8.44 (4.8-10.8) K/ul Hgb 8.7 L (14.0-18.0) g/dl Hct 25.8 L (42.0-52.0) % Plt Count 108 L (130-400) K/uL BMP 03/11/25 05:36 Sodium 140 Potassium 3.8 Chloride 110 H Carbon Dioxide 27 BUN 13 Creatinine 0.89 Glucose 99 Calcium 7.9 L Medications Administered Current Inpatient Medications Acetaminophen (Acetaminophen 500 Mg Tab) 1,000 mg PO Q8H PRN PRN Reason: MILD Pain (1,2,3) & Pre PT Stop: 04/08/25 18:35 Last Admin: 03/10/25 17:04 Dose: 1,000 mg Al Hydrox/Mg Hydrox/Simethicone (Aluminum/Magnesium Susp 30 Ml Udc) 30 ml PO Q6H PRN PRN Reason: Dyspepsia Stop: 04/08/25 18:35 Bisacodyl (Bisacodyl 10 Mg Supp) 10 mg VT DAILY PRN PRN Reason: Constipation Stop: 04/08/25 18:35 Diphenhydramine HCl (Diphenhydramine Capsule 25 Mg Cap) 25 mg PO Q6H PRN PRN Reason: Allergic Rhinitis/Insomnia Stop: 04/08/25 18:35 Famotidine (Famotidine 20 Mg Tab) 20 mg PO Q12H PRN PRN Reason: Dyspepsia Stop: 04/08/25 18:35 Hydromorphone HCl (Hydromorphone Inj 0.5 Mg/0.5 Ml Syr) 0.5 mg IV Q3H PRN PRN Reason: MODERATE Pain(4,5,6)/Pre PT Stop: 03/23/25 18:35 Hydromorphone HCl (Hydromorphone Inj 1 Mg/Ml Syringe) 1 mg IV Q3H PRN PRN Reason: SEVERE Pain (7,8,9,10) Stop: 03/23/25 18:35 Hydroxyzine HCl (Hydroxyzine Hcl 25 Mg Tab) 25 mg PO Q8H PRN PRN Reason: Anxiety Stop: 04/08/25 18:35 Promethazine HCl (Phenergan) 12.5 mg in 50.5 mls @ 202 mls/hr IV Q6H PRN PRN Reason: Nausea And Vomiting Stop: 04/08/25 18:35 Dexamethasone 6 mg/ Syringe 1.5 mls @ 1 mls/min IV DAILY JOSHUA Stop: 03/12/25 09:02 Last Admin: 03/11/25 08:07 Dose: 1 mls/min Sodium Chloride (Nss) 1,000 mls @ 75 mls/hr IV .[id number] JOSHUA Stop: 03/13/25 17:59 Last Infusion: 03/11/25 10:49 Dose: 75 mls/hr Influenza Virus Vaccine Quadrival (Do Not Administer Flu Vaccine) 1 each N/A PRN PRN PRN Reason: Notification Stop: 04/08/25 18:35 Lorazepam (Lorazepam 0.5 Mg Tab) 0.5 mg PO Q8H PRN PRN Reason: Sedation/Anxiety Stop: 04/08/25 18:35 Lorazepam (Lorazepam 2 Mg/1 Ml Vial) 0.5 mg IV Q8H PRN PRN Reason: Sedation/Anxiety Stop: 04/08/25 18:35 Magnesium Hydroxide (Magnesium Hydroxide Susp 30 Ml Udc) 30 ml PO Q24H PRN PRN Reason: Constipation Stop: 04/08/25 18:35 Metoclopramide HCl (Metoclopramide Hcl Inj 5 Mg/Ml 2 Ml Vial) 10 mg IV Q6H PRN PRN Reason: Nausea &/or Vomiting Stop: 04/08/25 18:35 Metoprolol Tartrate (Metoprolol Tartrate 50 Mg Tab) 50 mg PO QAM JOSHUA Stop: 04/09/25 08:59 Naloxone HCl (Naloxone Hcl 0.4 Mg/1 Ml Vial/Carp) 0.1 mg IV Q5M PRN PRN Reason: Oversedation/Resp depression Stop: 04/08/25 18:35 Ondansetron HCl (Ondansetron Inj 2 Mg/Ml 2 Ml Vial) 4 mg IV Q6H PRN PRN Reason: Nausea &/or Vomiting Stop: 04/08/25 18:35 Ondansetron HCl (Ondansetron 4 Mg Od Tab) 4 mg PO Q6H PRN PRN Reason: Nausea Stop: 04/08/25 18:35 Oxycodone HCl (Oxycodone Hcl Ir 5 Mg Tab (Immediate Release)) 5 - 10 mg PO Q4H PRN PRN Reason: MOD/SEV Pain & Pre PT Stop: 03/23/25 18:35 Last Admin: 03/11/25 01:44 Dose: 10 mg Pneumococcal Polyvalent Vaccine (Do Not Administer Pneumococcal Vaccine) 1 each N/A PRN PRN PRN Reason: Notification Stop: 04/08/25 18:35 Senna/Docusate Sodium (Docusate Sodium/Senna 50/8.6mg Tab) 2 tab PO HS JOSHUA Stop: 04/08/25 20:59 Last Admin: 03/10/25 19:34 Dose: 2 tab Sodium Biphosphate/Sodium Phosphate (Sod Phosphate/Sod Biphosphate Enema 132 Ml Btl) 132 ml VT ONE PRN PRN Reason: Constipation Stop: 04/08/25 18:35 Tramadol HCl (Tramadol Hcl 50 Mg Tablet) 50 - 100 mg PO Q4H PRN PRN Reason: MOD/SEV Pain & Pre PT Stop: 04/08/25 18:35 Last Admin: 03/11/25 06:09 Dose: 100 mg (5) HTN (hypertension) Hypertension type: unspecified Qualified Code(s): I10 - Essential (primary) hypertension
[2025-03-11 15:22] LABS: Hematocrit (blood only) 27.8 % (42.0-52.0); Hemoglobin 9.3 g/dl (14.0-18.0)
[2025-03-12 05:57] LABS: Hematocrit (blood only) 24.9 % (42.0-52.0); Hemoglobin 8.2 g/dl (14.0-18.0); Mean Corpuscular Hemoglobin 30.6 pg (25.0-34.0); Mean Corpuscular Volume 92.9 fL (80.0-100.0); Platelet Count 109 K/uL (130-400); RDW Standard Deviation 45.8 fL (36.4-46.3); Red Blood Count 2.68 M/uL (4.70-6.10); White Blood Count 8.86 K/ul (4.8-10.8)
[2025-03-12 06:13] LABS: Anion Gap 4.0 (3-11); Blood Urea Nitrogen 10.0 mg/dl (6-23); Calcium 7.9 mg/dl (8.6-10.3); Carbon Dioxide 28.0 mmol/L (21-32); Chloride 108.0 mmol/L (98-107); Creatinine Clr Calc Pharmacy 83.5 ml/min; Glucose 103.0 mg/dl (70-99(Fasting)); Potassium 3.6 mmol/L (3.5-5.1); Sodium 140.0 mmol/L (136-145)
--- NOTE | 2025-03-12 11:06 | Orthopedic Progress Note ---
Date of Service March 12, 2025 Assessment & Plan (1) Multilevel lumbosacral spondylosis with radiculopathy: Plan: At this time we will continue physical therapy. He would most likely require a postoperative appointment with urology for his catheter. Consider discharge home soon. Admission and Anticipated Discharge Date Admission Date: March 09, 2025 Subjective Patient's back pain is controlled. Leg symptoms improved. He is telling physical therapy. He did have the have a Ordonez placed last evening for retention. Physical Exam Physical Exam: Patient is in the chair at the bedside. Discussed when to testing. Results & Data Vital Signs (Past 12 Hours) Vital Signs Temp Pulse Resp BP Pulse Ox O2 Del Method 03/12/25 07:36 36.8 C 102 H 18 121/72 96 Room Air Queries Orthopedic Spine Acute Posthemorrhagic Anemia: Yes
--- NOTE | 2025-03-12 13:54 | Urology Consultation ---
Date of Consultation March 12, 2025 Assessment & Plan (1) Urinary retention: 65-year-old male admitted status post elective decompression and fusion at T12-L3/L5-S1 and hardware removal at L3-L5 by Dr. Fuller on 03/09/2025. He developed urinary retention after Ordonez catheter removal. Urology is consulted for urinary retention. Urinary retention is likely multifactorial including underlying BPH/bladder outlet obstruction, recent surgery/anesthesia, medications, constipation, etc. Recommend maintain Ordonez catheter for 1 week. Recommend normalize bowels. Recommend start tamsulosin, discussed with patient. Will arrange outpatient follow-up with our service for voiding trial and ongoing management. Continue medical management per hospital medicine service, postop care per Ortho service. will sign off, please contact her service with any additional questions or concerns History of Present Illness Reason for Consultation: urinary retention Attending Physician: Salazar Fuller, DO History of Present Illness This is a 65-year-old male with history of multilevel lumbosacral spondylosis with radiculopathy and lumbar spinal stenosis who was admitted status post elective decompression and fusion at T12-L3/L5-S1 and hardware removal at L3-L5 by Dr. Fuller on 03/09/2025. Patient's Ordonez catheter was removed on POD #2 (03/11/25) for voiding trial. He was voiding small amounts after catheter removal. Bladder scan revealed 874 mL. He was straight catheterized yesterday evening for 925 mL. Ordonez catheter was replaced yesterday evening. Urology is consulted for urinary retention. Patient seen and examined at bedside this afternoon. He is awake and sitting up in bedside chair. He reports he was voiding small amounts after catheter removal, but had sensation of incomplete emptying. Ordonez catheter intact with clear yellow urine. He reports some bothersome lower urinary tract symptoms at baseline, including: nocturia 4-5 times per night, sensation of incomplete emptying, and weak stream. No fever or chills. He is not on any medications for prostate or urinary pattern. He reports he moves his bowels about once per week. Labs today reviewedcreatinine 0.87, WBC 0.86, hemoglobin 8.2 Allergies Allergy/AdvReac Type Severity Reaction Status Date / Time No Known Allergies Allergy Verified 03/09/25 10:21 Home Medications Medication Instructions Recorded Confirmed Type metoprolol tartrate 50 mg tablet 50 mg PO QAM 02/09/25 03/09/25 History naproxen sodium 220 mg tablet 220 mg PO BID PRN Pain 02/09/25 03/09/25 History (Aleve) oxycodone 5 mg tablet 5 mg PO Q6H PRN pain #30 tabs 03/10/25 Rx tramadol 50 mg tablet 50 mg PO Q6H PRN pain, moderate 03/10/25 Rx #30 tabs Patient History Medical History Tremor Right hand- over the past several months - stable - will discuss with PCP at upcoming preop appt Slow to wake up after anesthesia had issues once, not sure which procedure Snores no sleep study done; sleeps alone- witnessed apnea unknown Surgical History Hx of cervical spine surgery (1992) unsure of level, mild ROM limits History of hand surgery right, "crush injury" History of lumbar fusion (2010) L3,4,5 Family History Other No family history of adverse response to anesthesia Social History Smoking Status: Former smoker Tobacco Type: Cigarettes Cigarettes Per Day: quit ~beginning of January 2025; Second Hand Exposure: No; Do You Dip or Chew Tobacco: No; Tobacco Cessation Education Requested by Patient: No Hx Alcohol Use: Yes Hx Substance Use: No Preferred Language: Belarusian Communication Ability: Effective Child Caregiver Required: No Beliefs That Will Affect Care: None Current Living Situation: Alone Other Information That Helps Us Care for You: No Feels Safe at Home: Yes Safety Concerns: Feels Safe At This Time Assistive Devices: Walker Assistive Devices Comment: dental implant Review of Systems Constitutional: as per Subjective / HPI Genitourinary: + as per Subjective / HPI Physical Exam Constitutional: no acute distress Respiratory: normal respiratory effort; no respiratory distress and no labored breathing Gastrointestinal (Abdomen): Inspection/Auscultation: abdomen normal to inspection Musculoskeletal: Head/Neck/Chest: normocephalic Neurologic: moves all extremities and awake Psychiatric: Orientation: alert and oriented x 3 Genitourinary: Ordonez draining clear yellow Results & Data Vital Signs (Past 12 Hours) Vital Signs Temp Pulse Resp BP Pulse Ox O2 Del Method 03/12/25 07:36 36.8 C 102 H 18 121/72 96 Room Air PG Care Time/CCT Total # of Minutes Spent Total Time Spent with Patient: Total time spent is greater than 50% in coordination of care (as documented) at patient's floor/unit and/or counseling patient: Coding Level of Care Code 51376 INT INP/OBS CARE 2/55MIN Diagnoses Urinary retention R33.9
--- NOTE | 2025-03-12 15:19 | Hospitalist Progress Note ---
Date of Service March 12, 2025 Assessment & Plan (1) S/P spinal surgery: (2) Multilevel lumbosacral spondylosis with radiculopathy: (3) Acute blood loss anemia: (4) Postoperative hypotension: (5) HTN (hypertension): Plan 65-year-old male with past medical history significant for HTN who is being seen in consultation for routine postoperative medical management after undergoing elective decompression and fusion at T12-L3/L5-S1 and hardware removal at L3-L5 performed [address] Fuller. S/p spinal surgery POD#3 s/p T12-L3/L5-S1 and hardware removal at L3-L5 performed by Dr. Fuller Per ortho for pain control, wound care, anticoagulation and activities Continue incentive spirometry, PT/OT when appropriate Post-op hypotension in setting of acute blood loss anemia EBL 1.1 L per op report, hypotensive following surgery but asymptomatic laying flat Given 1.5 NSS post-op as well as albumin 50ml x 2 since surgery per chart review 03/10: pt hypotensive 90/50s, asymptomatic. Hgb 7.8 (pre-op hgb 10.4), Transfused 1u prbcs, NSS 500ml x 1 with improved BP to 103/62 when evaluated 03/11: BPs remain soft today, patient minimally symptomatic, NSS 500ml bolus x 1 with improvement Hgb 8.7 -> 9.3 -> 8.2 today, ongoing high output DOMENIC noted BP improved today HTN Continue to hold metoprolol Patient reports was started about 2 months ago. May need to continue to hold at d/c. Urinary Retention Ordonez removed on 03/11, then required straight cath x 1, Ordonez reinserted due to ongoing retention Patient reports urinary difficulties x 2 years Urology consulted - keep Ordonez x 1 week, start Flomax DVT Prophylaxis: TEDs/SCDs as per spine ortho PCP: Be Allan DO [[facility]] Disposition: anticipate d/c home Thank you for this consultation. We will follow the patient with you during their hospital stay. You can reach a member of the [facility] Hospitalist Team 02/04 via [employer]. Patient seen in collaboration with Dr. Perez. I spent a total of 35 minutes coordinating, documenting, and providing care for this patient excluding time spent in the performance of separately billed services or time spent by another provider/QHP. Admission and Anticipated Discharge Date Admission Date: March 09, 2025 Supervising Physician Co-Signing Physician Notes Pt seen and examined by me, care coordinated w/ Adrianna. NAHID Eckert, pls refer to her note above for further detail. Pt is currently sitting up in chair in NAD. Pt is awake, alert, converses easily. Reports he was walking today but feels tired from it. Pt says he may need a rehab, CM is involved. Otherwise denies any fever, chills, chest pain, shortness of breath, abd. pain, n/v. Lungs CTAB, heart sounds regular, abdomen soft, pt is moving extremities. Hgb 8.2 this AM Will cont. to closely monitor. MD Chris Subjective Follow-up for medical management, s/p back surgery. Patient seen and examined. Sitting up in the chair. Reports his pain is well- controlled. Denies any further lightheadedness or dizziness. Ordonez catheter removed yesterday however had to be replaced due to urinary retention. + BM. Denies abdominal pain and nausea. No chest pain or shortness of breath. Review of Systems Review of Systems: ROS per HPI, all other systems reviewed and negative Physical Exam Constitutional: WD/WN, vitals as above no acute distress Respiratory: normal respiratory effort, lungs clear to auscultation Cardiovascular: Rate/Rhythm: regular rate and regular rhythm Vessels: normal peripheral pulses Extremities: no edema Musculoskeletal: S/p back surgery, drain in place draining serosanguineous drainage Skin: no rashes, warm and dry Neurologic: no focal motor deficits Psychiatric: A+Ox3, euthymic affect Results & Data Results & Data Vital Signs (Past 12 Hours) Vital Signs Temp Pulse Resp BP Pulse Ox O2 Del Method 03/12/25 13:55 36.6 C 85 16 109/65 96 Room Air 03/12/25 07:36 36.8 C 102 H 18 121/72 96 Room Air Laboratory Results Short CBC 03/11/25 03/12/25 Range/Units 15:09 05:28 WBC 8.86 (4.8-10.8) K/ul Hgb 9.3 L 8.2 L (14.0-18.0) g/dl Hct 27.8 L 24.9 L (42.0-52.0) % Plt Count 109 L (130-400) K/uL BMP 03/12/25 05:28 Sodium 140 Potassium 3.6 Chloride 108 H Carbon Dioxide 28 BUN 10 Creatinine 0.87 Glucose 103 H Calcium 7.9 L Medications Administered Current Inpatient Medications Acetaminophen (Acetaminophen 500 Mg Tab) 1,000 mg PO Q8H PRN PRN Reason: MILD Pain (1,2,3) & Pre PT Stop: 04/08/25 18:35 Last Admin: 03/10/25 17:04 Dose: 1,000 mg Al Hydrox/Mg Hydrox/Simethicone (Aluminum/Magnesium Susp 30 Ml Udc) 30 ml PO Q 6H PRN PRN Reason: Dyspepsia Stop: 04/08/25 18:35 Bisacodyl (Bisacodyl 10 Mg Supp) 10 mg [place] DAILY PRN PRN Reason: Constipation Stop: 04/08/25 18:35 Diphenhydramine HCl (Diphenhydramine Capsule 25 Mg Cap) 25 mg PO Q6H PRN PRN Reason: Allergic Rhinitis/Insomnia Stop: 04/08/25 18:35 Famotidine (Famotidine 20 Mg Tab) 20 mg PO Q12H PRN PRN Reason: Dyspepsia Stop: 04/08/25 18:35 Hydromorphone HCl (Hydromorphone Inj 0.5 Mg/0.5 Ml Syr) 0.5 mg IV Q3H PRN PRN Reason: MODERATE Pain(4,5,6)/Pre PT Stop: 03/23/25 18:35 Hydromorphone HCl (Hydromorphone Inj 1 Mg/Ml Syringe) 1 mg IV Q3H PRN PRN Reason: SEVERE Pain (7,8,9,10) Stop: 03/23/25 18:35 Hydroxyzine HCl (Hydroxyzine Hcl 25 Mg Tab) 25 mg PO Q8H PRN PRN Reason: Anxiety Stop: 04/08/25 18:35 Promethazine HCl (Phenergan) 12.5 mg in 50.5 mls @ 202 mls/hr IV Q6H PRN PRN Reason: Nausea And Vomiting Stop: 04/08/25 18:35 Influenza Virus Vaccine Quadrival (Do Not Administer Flu Vaccine) 1 each N/A PRN PRN PRN Reason: Notification Stop: 04/08/25 18:35 Lorazepam (Lorazepam 0.5 Mg Tab) 0.5 mg PO Q8H PRN PRN Reason: Sedation/Anxiety Stop: 04/08/25 18:35 Lorazepam (Lorazepam 2 Mg/1 Ml Vial) 0.5 mg IV Q8H PRN PRN Reason: Sedation/Anxiety Stop: 04/08/25 18:35 Magnesium Hydroxide (Magnesium Hydroxide Susp 30 Ml Udc) 30 ml PO Q24H PRN PRN Reason: Constipation Stop: 04/08/25 18:35 Metoclopramide HCl (Metoclopramide Hcl Inj 5 Mg/Ml 2 Ml Vial) 10 mg IV Q6H PRN PRN Reason: Nausea &/or Vomiting Stop: 04/08/25 18:35 Metoprolol Tartrate (Metoprolol Tartrate 50 Mg Tab) 50 mg PO QAM JOSHUA Stop: 04/09/25 08:59 Naloxone HCl (Naloxone Hcl 0.4 Mg/1 Ml Vial/Carp) 0.1 mg IV Q5M PRN PRN Reason: Oversedation/Resp depression Stop: 04/08/25 18:35 Ondansetron HCl (Ondansetron Inj 2 Mg/Ml 2 Ml Vial) 4 mg IV Q6H PRN PRN Reason: Nausea &/or Vomiting Stop: 04/08/25 18:35 Ondansetron HCl (Ondansetron 4 Mg Od Tab) 4 mg PO Q6H PRN PRN Reason: Nausea Stop: 04/08/25 18:35 Oxycodone HCl (Oxycodone Hcl Ir 5 Mg Tab (Immediate Release)) 5 - 10 mg PO Q4H PRN PRN Reason: MOD/SEV Pain & Pre PT Stop: 03/23/25 18:35 Last Admin: 03/12/25 10:44 Dose: 10 mg Pneumococcal Polyvalent Vaccine (Do Not Administer Pneumococcal Vaccine) 1 each N/A PRN PRN PRN Reason: Notification Stop: 04/08/25 18:35 Senna/Docusate Sodium (Docusate Sodium/Senna 50/8.6mg Tab) 2 tab PO HS JOSHUA Stop: 04/08/25 20:59 Last Admin: 03/11/25 20:06 Dose: Not Given Sodium Biphosphate/Sodium Phosphate (Sod Phosphate/Sod Biphosphate Enema 132 Ml Btl) 132 ml NJ ONE PRN PRN Reason: Constipation Stop: 04/08/25 18:35 Tamsulosin HCl (Tamsulosin Hcl 0.4 Mg Cap) 0.4 mg PO HS JOSHUA Stop: 04/11/25 20:59 Tramadol HCl (Tramadol Hcl 50 Mg Tablet) 50 - 100 mg PO Q4H PRN PRN Reason: MOD/SEV Pain & Pre PT Stop: 04/08/25 18:35 Last Admin: 03/11/25 06:09 Dose: 100 mg (5) HTN (hypertension) Hypertension type: unspecified Qualified Code(s): I10 - Essential (primary) hypertension
[2025-03-12] MEDS: TAMSULOSIN HCL 0.4 MG CAP PO SCH (21:03)
[2025-03-13 07:34] LABS: Hematocrit (blood only) 24.1 % (42.0-52.0); Hemoglobin 8.2 g/dl (14.0-18.0); Mean Corpuscular Hemoglobin 31.7 pg (25.0-34.0); Mean Corpuscular Volume 93.1 fL (80.0-100.0); Platelet Count 136 K/uL (130-400); RDW Standard Deviation 45.4 fL (36.4-46.3); Red Blood Count 2.59 M/uL (4.70-6.10); White Blood Count 8.73 K/ul (4.8-10.8)
[2025-03-13 07:53] LABS: Anion Gap 3.0 (3-11); Blood Urea Nitrogen 9.0 mg/dl (6-23); Calcium 8.2 mg/dl (8.6-10.3); Carbon Dioxide 30.0 mmol/L (21-32); Chloride 109.0 mmol/L (98-107); Creatinine Clr Calc Pharmacy 87.5 ml/min; Glucose 100.0 mg/dl (70-99(Fasting)); Magnesium 2.0 mg/dl (1.7-2.4); Potassium 3.8 mmol/L (3.5-5.1); Sodium 142.0 mmol/L (136-145)
--- NOTE | 2025-03-13 08:11 | Orthopedic Progress Note ---
Date of Service March 13, 2025 Assessment & Plan (1) Multilevel lumbosacral spondylosis with radiculopathy: Plan: Patient is progressing appropriately with therapy. He is safe for discharge to rehab when bed available. Admission and Anticipated Discharge Date Admission Date: March 09, 2025 Subjective Patient's pain is controlled. Leg symptoms improved. Physical Exam Physical Exam: Patient is distracted testing. Appears comfortable. Results & Data Vital Signs (Past 12 Hours) Vital Signs Temp Pulse Resp BP BP Pulse Ox O2 Del Method 03/13/25 08:04 36.5 C 101 H 20 101/53 L 96 Room Air 03/12/25 20:54 37 C 90 16 135/76 96 Room Air Queries Orthopedic Spine Acute Posthemorrhagic Anemia: Yes
[2025-03-13] MEDS: SODIUM CHLORIDE 0.9% 500 ML IV ONE (12:09)
--- NOTE | 2025-03-13 12:12 | Hospitalist Progress Note ---
Date of Service March 13, 2025 Assessment & Plan (1) S/P spinal surgery: (2) Multilevel lumbosacral spondylosis with radiculopathy: (3) Acute blood loss anemia: (4) Postoperative hypotension: (5) HTN (hypertension): Plan 65-year-old male with past medical history significant for HTN who is being seen in consultation for routine postoperative medical management after undergoing elective decompression and fusion at T12-L3/L5-S1 and hardware removal at L3-L5 performed [address] Fuller. S/p spinal surgery s/p T12-L3/L5-S1 and hardware removal at L3-L5 performed [address] Dr. Fuller Per ortho for pain control, wound care, anticoagulation and activities Continue incentive spirometry, PT/OT when appropriate Post-op hypotension in setting of acute blood loss anemia EBL 1.1 L per op report, hypotensive following surgery but asymptomatic laying flat Given 1.5 NSS post-op as well as albumin 50ml x 2 since surgery per chart review 03/10: pt hypotensive 90/50s, asymptomatic. Hgb 7.8 (pre-op hgb 10.4), Transfused 1u prbcs, NSS 500ml x 1 with improved BP to 103/62 when evaluated 03/11: BPs remain soft today, patient minimally symptomatic, NSS 500ml bolus x 1 with improvement Hgb 8.7 -> 9.3 -> 8.2 03/12 Hgb 8.2 03/13 hgb 8.2, stable from yesterday, will provide 500 mL NS, will also give IV venofer HTN Held metoprolol, resume at low dose 12.5 Patient reports was started about 2 months ago. Urinary Retention Ordonez removed on 03/11, then required straight cath x 1, Ordonez reinserted due to ongoing retention Patient reports urinary difficulties x 2 years Urology consulted - keep Ordonez x 1 week, start Flomax DVT Prophylaxis: TEDs/SCDs as per spine ortho PCP: Be Allan DO [[facility]] Disposition: anticipate d/c home Thank you for this consultation. We will follow the patient with you during their hospital stay. You can reach a [facility] of [facility] via [employer]. Admission and Anticipated Discharge Date Admission Date: March 09, 2025 Subjective Follow-up for medical management, s/p back surgery. Currently lying in bed in NAD, reports he felt little lightheaded earlier when getting up to chair. Denies any fever, chills, chest pain, shortness of breath. Pain is well-controlled. + Ordonez Review of Systems Review of Systems: All systems reviewed & are unremarkable except as noted in Subjective Physical Exam Physical Exam: Constitutional: WD/WN, in NAD Respiratory: normal respiratory effort, lungs navi ar to auscultation Cardiovascular: Rate/Rhythm: regul ar rate and regula r rhythm Vessels: normal peripheral pulses Extremiti es: no edema Musculoskeletal: S/p back surger y, moves extremiti es Skin: no rashes, warm an d dry Neurologic: awake, alert, spee ch fluent, answers appropriately, mo ves extremities Psychiatric: A+Ox3, euthymic af fect Results & Data Results & Data Vital Signs (Past 12 Hours) Vital Signs Temp Pulse Resp BP Pulse Ox O2 Del Method 03/13/25 08:04 36.5 C 101 H 20 101/53 L 96 Room Air Laboratory Results 03/13/25 Range/Units 07:13 WBC 8.73 (4.8-10.8) K/ul RBC 2.59 L (4.70-6.10) M/uL Hgb 8.2 L (14.0-18.0) g/dl Hct 24.1 L (42.0-52.0) % MCV 93.1 (80.0-100.0) fL MCH 31.7 (25.0-34.0) pg MCHC 34.0 (32.0-36.0) g/dL RDW Std Deviation 45.4 (36.4-46.3) fL RDW Coeff of Vanita 13.3 (11.5-14.5) % Plt Count 136 (130-400) K/uL MPV 9.8 (9.4-12.4) fL Sodium 142 (136-145) mmol/L Potassium 3.8 (3.5-5.1) mmol/L Chloride 109 H (98-107) mmol/L Carbon Dioxide 30 (21-32) mmol/L Anion Gap 3 (3-11) BUN 9 (6-23) mg/dl Creatinine 0.83 (0.6-1.4) mg/dl Est Cr Clr Drug Dosing 87.5 ml/min eGFR 96.53 BUN/Creatinine Ratio 10.8 (10-20) Glucose 100 H (70-99(Fasting)) mg/dl Calcium 8.2 L (8.6-10.3) mg/dl Phosphorus 2.9 (2.5-4.9) mg/dl Magnesium 2.0 (1.7-2.4) mg/dl Medications Administered Current Inpatient Medications Acetaminophen (Acetaminophen 500 Mg Tab) 1,000 mg PO Q8H PRN PRN Reason: MILD Pain (1,2,3) & Pre PT Stop: 04/08/25 18:35 Last Admin: 03/10/25 17:04 Dose: 1,000 mg Al Hydrox/Mg Hydrox/Simethicone (Aluminum/Magnesium Susp 30 Ml Udc) 30 ml PO Q6H PRN PRN Reason: Dyspepsia Stop: 04/08/25 18:35 Bisacodyl (Bisacodyl 10 Mg Supp) 10 mg [place] DAILY PRN PRN Reason: Constipation Stop: 04/08/25 18:35 Diphenhydramine HCl (Diphenhydramine Capsule 25 Mg Cap) 25 mg PO Q6H PRN PRN Reason: Allergic Rhinitis/Insomnia Stop: 04/08/25 18:35 Famotidine (Famotidine 20 Mg Tab) 20 mg PO Q12H PRN PRN Reason: Dyspepsia Stop: 04/08/25 18:35 Hydromorphone HCl (Hydromorphone Inj 0.5 Mg/0.5 Ml Syr) 0.5 mg IV Q3H PRN PRN Reason: MODERATE Pain(4,5,6)/Pre PT Stop: 03/23/25 18:35 Hydromorphone HCl (Hydromorphone Inj 1 Mg/Ml Syringe) 1 mg IV Q3H PRN PRN Reason: SEVERE Pain (7,8,9,10) Stop: 03/23/25 18:35 Hydroxyzine HCl (Hydroxyzine Hcl 25 Mg Tab) 25 mg PO Q8H PRN PRN Reason: Anxiety Stop: 04/08/25 18:35 Promethazine HCl (Phenergan) 12.5 mg in 50.5 mls @ 202 mls/hr IV Q6H PRN PRN Reason: Nausea And Vomiting Stop: 04/08/25 18:35 Sodium Chloride (Nss) 500 mls @ 80 mls/hr IV .Q6H15M ONE Stop: 03/13/25 18:09 Iron Sucrose 200 mg/ Sodium (Chloride) 110 mls @ 220 mls/hr IV TODAY ONE Stop: 03/13/25 12:33 Influenza Virus Vaccine Quadrival (Do Not Administer Flu Vaccine) 1 each N/A PRN PRN PRN Reason: Notification Stop: 04/08/25 18:35 Lorazepam (Lorazepam 0.5 Mg Tab) 0.5 mg PO Q8H PRN PRN Reason: Sedation/Anxiety Stop: 04/08/25 18:35 Lorazepam (Lorazepam 2 Mg/1 Ml Vial) 0.5 mg IV Q8H PRN PRN Reason: Sedation/Anxiety Stop: 04/08/25 18:35 Magnesium Hydroxide (Magnesium Hydroxide Susp 30 Ml Udc) 30 ml PO Q24H PRN PRN Reason: Constipation Stop: 04/08/25 18:35 Metoclopramide HCl (Metoclopramide Hcl Inj 5 Mg/Ml 2 Ml Vial) 10 mg IV Q6H PRN PRN Reason: Nausea &/or Vomiting Stop: 04/08/25 18:35 Metoprolol Tartrate (Metoprolol Tartrate 50 Mg Tab) 50 mg PO QAM JOSHUA Stop: 04/09/25 08:59 Naloxone HCl (Naloxone Hcl 0.4 Mg/1 Ml Vial/Carp) 0.1 mg IV Q5M PRN PRN Reason: Oversedation/Resp depression Stop: 04/08/25 18:35 Ondansetron HCl (Ondansetron Inj 2 Mg/Ml 2 Ml Vial) 4 mg IV Q6H PRN PRN Reason: Nausea &/or Vomiting Stop: 04/08/25 18:35 Ondansetron HCl (Ondansetron 4 Mg Od Tab) 4 mg PO Q6H PRN PRN Reason: Nausea Stop: 04/08/25 18:35 Oxycodone HCl (Oxycodone Hcl Ir 5 Mg Tab (Immediate Release)) 5 - 10 mg PO Q4H PRN PRN Reason: MOD/SEV Pain & Pre PT Stop: 03/23/25 18:35 Last Admin: 03/13/25 10:52 Dose: 10 mg Pneumococcal Polyvalent Vaccine (Do Not Administer Pneumococcal Vaccine) 1 each N/A PRN PRN PRN Reason: Notification Stop: 04/08/25 18:35 Senna/Docusate Sodium (Docusate Sodium/Senna 50/8.6mg Tab) 2 tab PO HS [facility] Stop: 04/08/25 20:59 Last Admin: 03/12/25 21:00 Dose: Not Given Sodium Biphosphate/Sodium Phosphate (Sod Phosphate/Sod Biphosphate Enema 132 Ml Btl) 132 ml [place] ONE PRN PRN Reason: Constipation Stop: 04/08/25 18:35 Tamsulosin HCl (Tamsulosin Hcl 0.4 Mg Cap) 0.4 mg PO [facility] Stop: 04/11/25 20:59 Last Admin: 03/12/25 21:03 Dose: 0.4 mg Tramadol HCl (Tramadol Hcl 50 Mg Tablet) 50 - 100 mg PO Q4H PRN PRN Reason: MOD/SEV Pain & Pre PT Stop: 04/08/25 18:35 Last Admin: 03/12/25 21:02 Dose: 100 mg (5) HTN (hypertension) Hypertension type: unspecified Qualified Code(s): I10 - Essential (primary) hypertension
[2025-03-13] MEDS ORDERED: METOPROLOL TARTRATE 25 MG TAB PO SCH (12:30)
[2025-03-13] MEDS: IRON SUCROSE 200 MG in SODIUM CHLORIDE 0.9% 100 ML IV ONE (13:48)
[2025-03-13] MEDS: METOPROLOL TARTRATE 25 MG TAB PO SCH (13:52)
[2025-03-14 06:45] LABS: Hematocrit (blood only) 25.7 % (42.0-52.0); Hemoglobin 8.4 g/dl (14.0-18.0); Mean Corpuscular Hemoglobin 30.5 pg (25.0-34.0); Mean Corpuscular Volume 93.5 fL (80.0-100.0); Platelet Count 154 K/uL (130-400); RDW Standard Deviation 44.9 fL (36.4-46.3); Red Blood Count 2.75 M/uL (4.70-6.10); White Blood Count 6.83 K/ul (4.8-10.8)
[2025-03-14 07:02] LABS: Anion Gap 3.0 (3-11); Blood Urea Nitrogen 12.0 mg/dl (6-23); Calcium 8.1 mg/dl (8.6-10.3); Carbon Dioxide 31.0 mmol/L (21-32); Chloride 106.0 mmol/L (98-107); Creatinine Clr Calc Pharmacy 86.5 ml/min; Glucose 103.0 mg/dl (70-99(Fasting)); Magnesium 1.8 mg/dl (1.7-2.4); Potassium 4.0 mmol/L (3.5-5.1); Sodium 140.0 mmol/L (136-145)
--- NOTE | 2025-03-14 09:07 | XRay Report ---
KUB CLINICAL HISTORY: ileus? COMPARISON STUDY: None. FINDINGS: Multilevel spinal decompression and fusion is incidentally noted. Hardware is intact. No un expected radiopaque foreign bodies are identified. The bowel gas pattern is normal. There is a modera te amount of stool within the cecum and ascending colon. There is a possibility of small bowel gas. M inimal left basilar opacity favors atelectasis. IMPRESSION: No radiographic evidence for a bowel obstruction or ileus. ACT 112: Negative or not required by law. Electronically signed by: Ronny Márquez M.D. 03/14/2025 9:06 AM
--- NOTE | 2025-03-14 09:23 | Hospitalist Progress Note ---
Date of Service March 14, 2025 Assessment & Plan (1) S/P spinal surgery: (2) Multilevel lumbosacral spondylosis with radiculopathy: (3) Acute blood loss anemia: (4) Postoperative hypotension: (5) HTN (hypertension): (6) Urinary retention: Plan: Patient is a 65-year-old male with past medical history significant for HTN who is being seen in consultation for routine postoperative medical management after undergoing elective decompression and fusion at T12-L3/L5-S1 and hardware removal at L3-L5 performed [address] Dr[address] Fuller earlier today. S/p spinal surgery POD#5 s/p T12-L3/L5-S1 and hardware removal at L3-L5 performed by Dr. Fuller Per ortho for pain control, wound care, anticoagulation and activities Continue incentive spirometry, PT/OT when appropriate Post-op hypotension in setting of acute blood loss anemia EBL 1.1 L per op report, hypotensive following surgery but asymptomatic laying flat He had received IVF and albumin as well as PRBC transfusion on 03/10/25. His home metoprolol has been on hold. Metoprolol tartrate has been restarted at 12.5mg 03/13/25 as blood pressures had improved and Hgb stable. Last night episode lightheadedness with getting up, improved with sitting Hgb stable at 8.4. 03/13/25: Hgb: 8.2, 03/12/25 Hgb: 8.2, 03/11/25 hgb: 9.3, 03/10 was 7.8 and increased to 9.0 after 1 unit PRBC transfusion. pre-op hgb: 13.9 Was given IV venofer 03/13/25 Would recommend starting daily ferrous sulfate Would recommend outpatient CBC in one week for monitoring Urinary Retention Urinary retention is likely multifactorial including underlying BPH/bladder outlet obstruction, recent surgery/anesthesia, medications, constipation Ordonez cath in place Urology consulted and Recommend maintain Ordonez catheter for 1 week, started tamsulosin, and urology will arrange outpatient follow-up with our service for voiding trial and ongoing management. HTN With recent hypotension that has since improved home metoprolol was on hold Metoprolol 12.5mg was started on 03/13/25 (Decreased from home dose of 50mg daily) Will need outpatient follow up with PCP for recheck in one week for further dosage instructions DVT Prophylaxis: As per primary service PCP: Be Allan DO [[facility]] Disposition: Has pending auth for [facility]. D/C planning as per primary service I spent a total of 30 minutes reviewing notes, outpatient records, labs, medication, coordinating, documenting and providing care for this patient excluding time spent in the performance of separately billed services and excluding time spent by another provider/QHP. Admission and Anticipated Discharge Date Admission Date: March 09, 2025 Supervising Physician Co-Signing Physician Notes Pt seen and examined by me, care coordinated w/ ZACHARY Solares, pls refer to her note above for further detail. Pt is currently in NAD. He is awake, alert, converses easily. Reports having several BMs, constipation resolved.Also denies any fever, chills, chest pain, shortness of breath, abd. pain, n/v. Lungs CTAB, heart sounds regular, abdomen soft, pt is moving extremities. Hgb 8.4 this AM received IV venofer yesterday. Will cont. to closely monitor. Plan to DC to rehab. MD Chris Subjective Patient seen and examined. Sitting in bed. POD#5 s/p decompression and fusion at T12-L3/L5-S1 and hardware removal at L3-L5 on 03/09/25. He had blood loss anemia and was hypotensive after surgery. He had received IVF and albumin as well as PRBC transfusion on 03/10/25. His home metoprolol has been on hold. Metoprolol tartrate has been restarted at 12.5mg 03/13/25 as blood pressures had improved and Hgb stable. States last night had some lightheadedness with getting up to ambulate that resolved when got back in bed. Reports this morning feeling good sitting in bed. He has Ordonez catheter in place as had urinary retention. States was having constipation however last night had multiple loose BMs. Today KUB done and was without evidence of ileus. Has auth pending for [facility] rehab. Patient denies CP, SOB, palpitations, syncope, fever/chills, diaphoresis, N/V, KUMAR, abdominal pain, extremity edema, rashes, urinary symptoms. Review of Systems Review of Systems: All systems reviewed & are unremarkable except as noted in HPI & below Physical Exam Physical Exam: General: no distress, WDWN Head: normocephalic, atraumatic Eyes: conjunctiva non-injected, anicteric ENT: normal inspection external ears, nose, mucous membranes moist Neck: supple, trachea midline, non-tender Lungs: clear, no respiratory distress, no wheezing/rhonchi/rales CV: RRR, no murmur, no pretibial edema Abd: normal BS, soft, non-tender Back: surgical dressing in place and dry Ext: no cyanosis, no calf tenderness Neuro: A&O x 3, no focal deficits noted, normal affect Skin: warm, dry Results & Data Results & Data Vital Signs (Past 12 Hours) Vital Signs Temp Pulse Pulse Pulse Resp BP Pulse Ox 03/14/25 08:57 94 H 118/73 03/14/25 07:10 36.4 C L 92 H 18 164/80 H 95 03/13/25 22:25 93 H 95/55 L 03/13/25 22:12 36.9 C 97 H 18 143/76 H 96 O2 Del Method 03/14/25 08:57 03/14/25 07:10 Room Air 03/13/25 22:25 03/13/25 22:12 Room Air Laboratory Results Short CBC 03/14/25 Range/Units 06:18 WBC 6.83 (4.8-10.8) K/ul Hgb 8.4 L (14.0-18.0) g/dl Hct 25.7 L (42.0-52.0) % Plt Count 154 (130-400) K/uL BMP 03/14/25 06:18 Sodium 140 Potassium 4.0 Chloride 106 Carbon Dioxide 31 BUN 12 Creatinine 0.84 Glucose 103 H Calcium 8.1 L (5) HTN (hypertension) Hypertension type: unspecified Qualified Code(s): I10 - Essential (primary) hypertension
[2025-03-14] MEDS: SODIUM CHLORIDE 0.9% 500 ML IV SCH (10:23)
--- NOTE | 2025-03-14 10:34 | Orthopedic Progress Note ---
Date of Service March 14, 2025 Assessment & Plan (1) Multilevel lumbosacral spondylosis with radiculopathy: Plan: This time we will continue physical therapy was in the hospital. We are awaiting approval for rehab. He is ready for discharge when bed available. Admission and Anticipated Discharge Date Admission Date: March 09, 2025 Subjective Patient's back pain is controlled. He is tolerating physical therapy. Physical Exam Physical Exam: Patient is at the bedside. Neurologically intact. Results & Data Vital Signs (Past 12 Hours) Vital Signs Temp Pulse Pulse Resp BP Pulse Ox O2 Del Method 03/14/25 08:57 94 H 118/73 03/14/25 07:10 36.4 C L 92 H 18 164/80 H 95 Room Air Queries Orthopedic Spine Acute Posthemorrhagic Anemia: Yes
[2025-03-14] MEDS: MAGNESIUM HYDROXIDE SUSP 30 ML UDC PO PRN (14:46)
[2025-03-15 06:57] LABS: Hematocrit (blood only) 24.9 % (42.0-52.0); Hemoglobin 8.1 g/dl (14.0-18.0); Mean Corpuscular Hemoglobin 30.9 pg (25.0-34.0); Mean Corpuscular Volume 95.0 fL (80.0-100.0); Platelet Count 181 K/uL (130-400); RDW Standard Deviation 45.6 fL (36.4-46.3); Red Blood Count 2.62 M/uL (4.70-6.10); White Blood Count 5.76 K/ul (4.8-10.8)
[2025-03-15 07:14] LABS: Anion Gap 4.0 (3-11); Blood Urea Nitrogen 13.0 mg/dl (6-23); Calcium 8.0 mg/dl (8.6-10.3); Carbon Dioxide 31.0 mmol/L (21-32); Chloride 105.0 mmol/L (98-107); Creatinine Clr Calc Pharmacy 86.5 ml/min; Glucose 91.0 mg/dl (70-99(Fasting)); Potassium 4.0 mmol/L (3.5-5.1); Sodium 140.0 mmol/L (136-145)
[2025-03-15] MEDS: FERROUS SULFATE 325 MG TAB PO SCH (08:42)
--- NOTE | 2025-03-15 10:05 | Orthopedic Progress Note ---
Date of Service March 15, 2025 Assessment & Plan (1) Multilevel lumbosacral spondylosis with radiculopathy: Plan: This time we will continue physical therapy while he is in the hospital. Plan for rehab hopefully Admission and Anticipated Discharge Date Admission Date: March 09, 2025 Subjective Patient's back pain is controlled. He is struggling with remittent right thigh pain with ambulation. Physical Exam Physical Exam: Patient is currently in bed. Is good strength testing. Results & Data Vital Signs (Past 12 Hours) Vital Signs Temp Pulse Resp BP Pulse Ox O2 Del Method 03/15/25 08:40 83 109/64 03/15/25 07:01 36.6 C 87 16 151/76 H 94 Room Air Queries Orthopedic Spine Acute Posthemorrhagic Anemia: Yes
--- NOTE | 2025-03-15 14:18 | Hospitalist Progress Note ---
Date of Service March 15, 2025 Assessment & Plan (1) S/P spinal surgery: (2) Multilevel lumbosacral spondylosis with radiculopathy: (3) Acute blood loss anemia: (4) Postoperative hypotension: (5) HTN (hypertension): (6) Urinary retention: Plan: Patient is a 65-year-old male with past medical history significant for HTN who is being seen in consultation for routine postoperative medical management after undergoing elective decompression and fusion at T12-L3/L5-S1 and hardware removal at L3-L5 performed [address] Dr[address] Fuller earlier today. S/p spinal surgery POD#6 s/p T12-L3/L5-S1 and hardware removal at L3-L5 performed by Dr. Fuller Per ortho for pain control, wound care, anticoagulation and activities Continue incentive spirometry, PT/OT when appropriate Post-op hypotension in setting of acute blood loss anemia EBL 1.1 L per op report, hypotensive following surgery but asymptomatic laying flat He had received IVF and albumin as well as PRBC transfusion on 03/10/25. His home metoprolol has been on hold. Metoprolol tartrate has been restarted at 12.5mg 03/13/25 as blood pressures had improved and Hgb stable. Denies further episode lightheadedness over past 24 hours Hgb stable at 8.1. 03/13/25: Hgb: 8.2, 03/12/25 Hgb: 8.2, 03/11/25 hgb: 9.3, 03/10 was 7.8 and increased to 9.0 after 1 unit PRBC transfusion. pre-op hgb: 13.9 Was given IV venofer 03/13/25 Started daily ferrous sulfate Would recommend outpatient CBC in one week for monitoring Urinary Retention Urinary retention is likely multifactorial including underlying BPH/bladder outlet obstruction, recent surgery/anesthesia, medications, constipation Ordonez cath in place Urology consulted and Recommend maintain Ordonez catheter for 1 week, started tamsulosin, and urology will arrange outpatient follow-up with our service for voiding trial and ongoing management. HTN With recent hypotension that has since improved home metoprolol was on hold Metoprolol 12.5mg was started on 03/13/25 (Decreased from home dose of 50mg daily) Will need outpatient follow up with PCP for recheck in one week for further dosage instructions DVT Prophylaxis: As per primary service PCP: Be Allan DO [[facility]] Disposition: Has pending auth for [facility]. D/C planning as per primary service I spent a total of 30 minutes reviewing notes, outpatient records, labs, medication, coordinating, documenting and providing care for this patient excluding time spent in the performance of separately billed services and excluding time spent by another provider/QHP. Admission and Anticipated Discharge Date Admission Date: March 09, 2025 Supervising Physician Co-Signing Physician Notes Pt seen and examined by me, care coordinated w/ ZACHARY Solares, pls refer to her note above for further detail. Pt is currently in NAD. He is awake, alert, converses easily. Denies any fever, chills, chest pain, shortness of breath, abd. pain, n/v. No longer experiences lightheadedness with ambulation. Lungs CTAB, heart sounds regular, abdomen soft, pt is moving extremities. Hgb 8.1 this AM. Cont. iron supplement even on discharge. Plan to DC to rehab. MD Chris I spent a total of 10 minutes coordinating, documenting, and providing care for this patient excluding time spend in the performance of separately billed services or time spent by another provider / QHP. Subjective Patient seen and examined sitting up in bed. POD#5 s/p decompression and fusion at T12-L3/L5-S1 and hardware removal at L3-L5 on 03/09/25. He had blood loss anemia and was hypotensive after surgery. Received PRBC transfusion on 03/10/25. Was having lightheadedness with ambulation previously however patient reports feeling improved today and denies any further dizziness. States BMs are loose after having constipation. Patient denies CP, SOB, palpitations, syncope, fever/chills, diaphoresis, N/V, KUMAR, abdominal pain, extremity edema, rashes, urinary symptoms. Review of Systems Review of Systems: All systems reviewed & are unremarkable except as noted in HPI & below Physical Exam Physical Exam: General: no distress, WDWN Head: normocephalic, atraumatic Eyes: conjunctiva non-injected, anicteric ENT: normal inspection external ears, nose, mucous membranes moist Neck: supple, trachea midline, non-tender Lungs: clear, no respiratory distress, no wheezing/rhonchi/rales CV: RRR, no murmur, no pretibial edema Abd: normal BS, soft, non-tender Back: surgical dressing in place and dry Ext: no cyanosis, no calf tenderness Neuro: A&O x 3, no focal deficits noted, normal affect Skin: warm, dry Results & Data Results & Data Vital Signs (Past 12 Hours) Vital Signs Temp Pulse Resp BP Pulse Ox O2 Del Method 03/15/25 10:22 79 105/62 97 Room Air 03/15/25 08:40 83 109/64 03/15/25 07:01 36.6 C 87 16 151/76 H 94 Room Air Laboratory Results Short CBC 03/15/25 Range/Units 06:30 WBC 5.76 (4.8-10.8) K/ul Hgb 8.1 L (14.0-18.0) g/dl Hct 24.9 L (42.0-52.0) % Plt Count 181 (130-400) K/uL BMP 03/15/25 06:30 Sodium 140 Potassium 4.0 Chloride 105 Carbon Dioxide 31 BUN 13 Creatinine 0.84 Glucose 91 Calcium 8.0 L Medications Administered Current Inpatient Medications Acetaminophen (Acetaminophen 500 Mg Tab) 1,000 mg PO Q8H PRN PRN Reason: MILD Pain (1,2,3) & Pre PT Stop: 04/08/25 18:35 Last Admin: 03/15/25 06:04 Dose: 1,000 mg Al Hydrox/Mg Hydrox/Simethicone (Aluminum/Magnesium Susp 30 Ml Udc) 30 ml PO Q6H PRN PRN Reason: Dyspepsia Stop: 04/08/25 18:35 Bisacodyl (Bisacodyl 10 Mg Supp) 10 mg FL DAILY PRN PRN Reason: Constipation Stop: 04/08/25 18:35 Diphenhydramine HCl (Diphenhydramine Capsule 25 Mg Cap) 25 mg PO Q6H PRN PRN Reason: Allergic Rhinitis/Insomnia Stop: 04/08/25 18:35 Famotidine (Famotidine 20 Mg Tab) 20 mg PO Q12H PRN PRN Reason: Dyspepsia Stop: 04/08/25 18:35 Ferrous Sulfate (Ferrous Sulfate 325 Mg Tab) 325 mg PO QAM JOSHUA Stop: 04/14/25 08:59 Last Admin: 03/15/25 08:42 Dose: 325 mg Hydromorphone HCl (Hydromorphone Inj 0.5 Mg/0.5 Ml Syr) 0.5 mg IV Q3H PRN PRN Reason: MODERATE Pain(4,5,6)/Pre PT Stop: 03/23/25 18:35 Hydromorphone HCl (Hydromorphone Inj 1 Mg/Ml Syringe) 1 mg IV Q3H PRN PRN Reason: SEVERE Pain (7,8,9,10) Stop: 03/23/25 18:35 Hydroxyzine HCl (Hydroxyzine Hcl 25 Mg Tab) 25 mg PO Q8H PRN PRN Reason: Anxiety Stop: 04/08/25 18:35 Promethazine HCl (Phenergan) 12.5 mg in 50.5 mls @ 202 mls/hr IV Q6H PRN PRN Reason: Nausea And Vomiting Stop: 04/08/25 18:35 Influenza Virus Vaccine Quadrival (Do Not Administer Flu Vaccine) 1 each N/A PRN PRN PRN Reason: Notification Stop: 04/08/25 18:35 Lorazepam (Lorazepam 0.5 Mg Tab) 0.5 mg PO Q8H PRN PRN Reason: Sedation/Anxiety Stop: 04/08/25 18:35 Lorazepam (Lorazepam 2 Mg/1 Ml Vial) 0.5 mg IV Q8H PRN PRN Reason: Sedation/Anxiety Stop: 04/08/25 18:35 Magnesium Hydroxide (Magnesium Hydroxide Susp 30 Ml Udc) 30 ml PO Q24H PRN PRN Reason: Constipation Stop: 04/08/25 18:35 Last Admin: 03/14/25 14:46 Dose: 30 ml Metoclopramide HCl (Metoclopramide Hcl Inj 5 Mg/Ml 2 Ml Vial) 10 mg IV Q6H PRN PRN Reason: Nausea &/or Vomiting Stop: 04/08/25 18:35 Metoprolol Tartrate (Metoprolol Tartrate 25 Mg Tab) 12.5 mg PO DAILY JOSHUA Stop: 04/12/25 12:59 Last Admin: 03/15/25 08:42 Dose: 12.5 mg Naloxone HCl (Naloxone Hcl 0.4 Mg/1 Ml Vial/Carp) 0.1 mg IV Q5M PRN PRN Reason: Oversedation/Resp depression Stop: 04/08/25 18:35 Ondansetron HCl (Ondansetron Inj 2 Mg/Ml 2 Ml Vial) 4 mg IV Q6H PRN PRN Reason: Nausea &/or Vomiting Stop: 04/08/25 18:35 Ondansetron HCl (Ondansetron 4 Mg Od Tab) 4 mg PO Q6H PRN PRN Reason: Nausea Stop: 04/08/25 18:35 Oxycodone HCl (Oxycodone Hcl Ir 5 Mg Tab (Immediate Release)) 5 - 10 mg PO Q4H PRN PRN Reason: MOD/SEV Pain & Pre PT Stop: 03/23/25 18:35 Last Admin: 03/13/25 10:52 Dose: 10 mg Pneumococcal Polyvalent Vaccine (Do Not Administer Pneumococcal Vaccine) 1 each N/A PRN PRN PRN Reason: Notification Stop: 04/08/25 18:35 Senna/Docusate Sodium (Docusate Sodium/Senna 50/8.6mg Tab) 2 tab PO HS [facility] Stop: 04/08/25 20:59 Last Admin: 03/14/25 21:00 Dose: Not Given Sodium Biphosphate/Sodium Phosphate (Sod Phosphate/Sod Biphosphate Enema 132 Ml Btl) 132 ml FL ONE PRN PRN Reason: Constipation Stop: 04/08/25 18:35 Tamsulosin HCl (Tamsulosin Hcl 0.4 Mg Cap) 0.4 mg PO HS [facility] Stop: 04/11/25 20:59 Last Admin: 03/14/25 21:06 Dose: 0.4 mg Tramadol HCl (Tramadol Hcl 50 Mg Tablet) 50 - 100 mg PO Q4H PRN PRN Reason: MOD/SEV Pain & Pre PT Stop: 04/08/25 18:35 Last Admin: 03/15/25 08:42 Dose: 50 mg Vitamin D (Cholecalciferol 125 Mcg (5,000 Units) Tab) 125 mcg PO DAILY JOSHUA Stop: 04/15/25 08:59 (5) HTN (hypertension) Hypertension type: unspecified Qualified Code(s): I10 - Essential (primary) hypertension
[2025-03-16 07:14] VITALS: RESP 18; TEMP 97.5; O2SAT 94
[2025-03-16] MEDS: CHOLECALCIFEROL 125 MCG (5,000 UNITS) TAB PO SCH (07:15)
--- NOTE | 2025-03-16 07:59 | Hospitalist Progress Note ---
Date of Service March 16, 2025 Assessment & Plan (1) S/P spinal surgery: (2) Multilevel lumbosacral spondylosis with radiculopathy: (3) Acute blood loss anemia: (4) Postoperative hypotension: (5) HTN (hypertension): (6) Urinary retention: Plan: Patient is a 65-year-old male with past medical history significant for HTN who is being seen in consultation for routine postoperative medical management after undergoing elective decompression and fusion at T12-L3/L5-S1 and hardware removal at L3-L5 performed [address] Dr[address] Fuller earlier today. S/p spinal surgery POD#7 s/p T12-L3/L5-S1 and hardware removal at L3-L5 performed [address] Dr[address] Fuller Per ortho for pain control, wound care, anticoagulation and activities Continue incentive spirometry, PT/OT when appropriate defer any further imaging to Dr. Fuller given increased pain complaint Post-op hypotension in setting of acute blood loss anemia EBL 1.1 L per op report, hypotensive following surgery but asymptomatic laying flat He had received IVF and albumin as well as PRBC transfusion on 03/10/25. His home metoprolol has been on hold. Metoprolol tartrate has been restarted at 12.5mg 03/13/25 as blood pressures had improved and Hgb stable. Denies further episode lightheadedness over past 24 hours Hgb stable at 8.8, s/p 1 unit PRBC on 03/10. pre-op hgb: 13.9 Was given IV venofer 03/13/25 Started daily ferrous sulfate Would recommend outpatient CBC in one week for monitoring Urinary Retention Urinary retention is likely multifactorial including underlying BPH/bladder outlet obstruction, recent surgery/anesthesia, medications, constipation Ordonez cath in place Urology consulted and Recommend maintain Ordonez catheter for 1 week, started tamsulosin, and urology will arrange outpatient follow-up with our service for voiding trial and ongoing management. HTN With recent hypotension that has since improved home metoprolol was on hold Metoprolol 12.5mg was started on 03/13/25 (Decreased from home dose of 50mg daily) Will need outpatient follow up with PCP for recheck in one week for further dosage instructions DVT Prophylaxis: As per primary service PCP: Be Allan DO [[facility]] Disposition: Has pending auth for [facility]. D/C planning as per primary service Pt was seen and examined in collaboration with Dr. Perez, please see addendum I spent a total of 31 minutes reviewing notes, outpatient records, labs, medication, coordinating, documenting and providing care for this patient excluding time spent in the performance of separately billed services and excluding time spent by another provider/QHP. Admission and Anticipated Discharge Date Admission Date: March 09, 2025 Supervising Physician Co-Signing Physician Notes Pt seen and examined by me, care coordinated w/ B. ZACHARY Dickens, pls refer to her note above for further detail. Pt is currently in NAD. He is awake, alert, converses easily. Denies any fever, chills, chest pain, shortness of breath, abd. pain, n/v. Reports some hip/leg pain w/ ambulation. Lungs CTAB, heart sounds regular, abdomen soft, pt is moving extremities. Hgb 8.8 this AM. Cont. iron supplement even on discharge. Metoprolol resumed at lower dose 12.5 mg daily - will need outpt. follow up. Also started on tamsulosin and will need urology follow up. Plan to DC to rehab. MD Chris I spent a total of 10 minutes coordinating, documenting, and providing care for this patient excluding time spend in the performance of separately billed services or time spent by another provider / QHP. Subjective Pt seen and examined on room 320-1. F/U Lumbar surgery by Dr. Fuller. Pt does not feel he is doing well today. He reports more pain, L > R. He also reports decreased ambulatory status today compared to yesterday. He is eating/drinking normally. He denies f/c/s, chest pain, sob, n/v. His bowels are moving. He is hopeful for rehab. Review of Systems Review of Systems: All systems reviewed & are unremarkable except as noted in HPI & below Physical Exam Physical Exam: Gen: WD/WN, NAD, lyingi n bed, A&O x3 HEENT: Normocephalic, atraumatic, conjunctivae moist, sclerae anicteric, mucous membranes moist. Lung: Clear to Auscultation bilaterally, no wheezes/rales/rhonchi Heart: Regular rate, regular rhythm, no murmurs, rubs, or gallops Abdomen: Soft, NT, ND +BS x 4 Extremities: No edema Skin: Warm, no rash, negative turgor. : Ordonez draining yellow urine Results & Data Results & Data Vital Signs (Past 12 Hours) Vital Signs Temp Pulse Resp BP Pulse Ox O2 Del Method 03/16/25 07:11 36.4 C L 88 18 169/82 H 94 Room Air 03/16/25 06:59 36.8 C 89 16 159/80 H 98 Room Air Laboratory Results Short CBC 03/16/25 Range/Units 08:01 WBC 6.12 (4.8-10.8) K/ul Hgb 8.8 L (14.0-18.0) g/dl Hct 27.3 L (42.0-52.0) % Plt Count 239 (130-400) K/uL I have independently reviewed and interpreted patient's cbc. Medications Administered Current Inpatient Medications Acetaminophen (Acetaminophen 500 Mg Tab) 1,000 mg PO Q8H PRN PRN Reason: MILD Pain (1,2,3) & Pre PT Stop: 04/08/25 18:35 Last Admin: 03/15/25 06:04 Dose: 1,000 mg Al Hydrox/Mg Hydrox/Simethicone (Aluminum/Magnesium Susp 30 Ml Udc) 30 ml PO Q6H PRN PRN Reason: Dyspepsia Stop: 04/08/25 18:35 Bisacodyl (Bisacodyl 10 Mg Supp) 10 mg NM DAILY PRN PRN Reason: Constipation Stop: 04/08/25 18:35 Diphenhydramine HCl (Diphenhydramine Capsule 25 Mg Cap) 25 mg PO Q6H PRN PRN Reason: Allergic Rhinitis/Insomnia Stop: 04/08/25 18:35 Famotidine (Famotidine 20 Mg Tab) 20 mg PO Q12H PRN PRN Reason: Dyspepsia Stop: 04/08/25 18:35 Ferrous Sulfate (Ferrous Sulfate 325 Mg Tab) 325 mg PO QAM JOSHUA Stop: 04/14/25 08:59 Last Admin: 03/16/25 07:16 Dose: 325 mg Hydromorphone HCl (Hydromorphone Inj 0.5 Mg/0.5 Ml Syr) 0.5 mg IV Q3H PRN PRN Reason: MODERATE Pain(4,5,6)/Pre PT Stop: 03/23/25 18:35 Hydromorphone HCl (Hydromorphone Inj 1 Mg/Ml Syringe) 1 mg IV Q3H PRN PRN Reason: SEVERE Pain (7,8,9,10) Stop: 03/23/25 18:35 Hydroxyzine HCl (Hydroxyzine Hcl 25 Mg Tab) 25 mg PO Q8H PRN PRN Reason: Anxiety Stop: 04/08/25 18:35 Promethazine HCl (Phenergan) 12.5 mg in 50.5 mls @ 202 mls/hr IV Q6H PRN PRN Reason: Nausea And Vomiting Stop: 04/08/25 18:35 Influenza Virus Vaccine Quadrival (Do Not Administer Flu Vaccine) 1 each N/A PRN PRN PRN Reason: Notification Stop: 04/08/25 18:35 Lorazepam (Lorazepam 0.5 Mg Tab) 0.5 mg PO Q8H PRN PRN Reason: Sedation/Anxiety Stop: 04/08/25 18:35 Lorazepam (Lorazepam 2 Mg/1 Ml Vial) 0.5 mg IV Q8H PRN PRN Reason: Sedation/Anxiety Stop: 04/08/25 18:35 Magnesium Hydroxide (Magnesium Hydroxide Susp 30 Ml Udc) 30 ml PO Q24H PRN PRN Reason: Constipation Stop: 04/08/25 18:35 Last Admin: 03/14/25 14:46 Dose: 30 ml Metoclopramide HCl (Metoclopramide Hcl Inj 5 Mg/Ml 2 Ml Vial) 10 mg IV Q6H PRN PRN Reason: Nausea &/or Vomiting Stop: 04/08/25 18:35 Metoprolol Tartrate (Metoprolol Tartrate 25 Mg Tab) 12.5 mg PO DAILY JOSHUA Stop: 04/12/25 12:59 Last Admin: 03/16/25 07:15 Dose: 12.5 mg Naloxone HCl (Naloxone Hcl 0.4 Mg/1 Ml Vial/Carp) 0.1 mg IV Q5M PRN PRN Reason: Oversedation/Resp depression Stop: 04/08/25 18:35 Ondansetron HCl (Ondansetron Inj 2 Mg/Ml 2 Ml Vial) 4 mg IV Q6H PRN PRN Reason: Nausea &/or Vomiting Stop: 04/08/25 18:35 Ondansetron HCl (Ondansetron 4 Mg Od Tab) 4 mg PO Q6H PRN PRN Reason: Nausea Stop: 04/08/25 18:35 Oxycodone HCl (Oxycodone Hcl Ir 5 Mg Tab (Immediate Release)) 5 - 10 mg PO Q4H PRN PRN Reason: MOD/SEV Pain & Pre PT Stop: 03/23/25 18:35 Last Admin: 03/16/25 09:19 Dose: 10 mg Pneumococcal Polyvalent Vaccine (Do Not Administer Pneumococcal Vaccine) 1 each N/A PRN PRN PRN Reason: Notification Stop: 04/08/25 18:35 Senna/Docusate Sodium (Docusate Sodium/Senna 50/8.6mg Tab) 2 tab PO HS JOSHUA Stop: 04/08/25 20:59 Last Admin: 03/15/25 20:03 Dose: Not Given Sodium Biphosphate/Sodium Phosphate (Sod Phosphate/Sod Biphosphate Enema 132 Ml Btl) 132 ml NM ONE PRN PRN Reason: Constipation Stop: 04/08/25 18:35 Tamsulosin HCl (Tamsulosin Hcl 0.4 Mg Cap) 0.4 mg PO HS JOSHUA Stop: 04/11/25 20:59 Last Admin: 03/15/25 20:03 Dose: 0.4 mg Tramadol HCl (Tramadol Hcl 50 Mg Tablet) 50 - 100 mg PO Q4H PRN PRN Reason: MOD/SEV Pain & Pre PT Stop: 04/08/25 18:35 Last Admin: 03/15/25 22:10 Dose: 50 mg Vitamin D (Cholecalciferol 125 Mcg (5,000 Units) Tab) 125 mcg PO DAILY JOSHUA Stop: 04/15/25 08:59 Last Admin: 03/16/25 07:15 Dose: 125 mcg (5) HTN (hypertension) Hypertension type: unspecified Qualified Code(s): I10 - Essential (primary) hypertension
[2025-03-16 08:18] LABS: Hematocrit (blood only) 27.3 % (42.0-52.0); Hemoglobin 8.8 g/dl (14.0-18.0); Mean Corpuscular Hemoglobin 30.8 pg (25.0-34.0); Mean Corpuscular Volume 95.5 fL (80.0-100.0); Platelet Count 239 K/uL (130-400); RDW Standard Deviation 45.1 fL (36.4-46.3); Red Blood Count 2.86 M/uL (4.70-6.10); White Blood Count 6.12 K/ul (4.8-10.8)
--- NOTE | 2025-03-16 09:20 | Orthopedic Progress Note ---
Date of Service March 16, 2025 Assessment & Plan (1) Multilevel lumbosacral spondylosis with radiculopathy: Plan: We will continue physical therapy. He struggling with some right trochanteric bursitis. He is ready for discharge to rehab when bed available. Admission and Anticipated Discharge Date Admission Date: March 09, 2025 Subjective Patient's back pain is controlled. radicular symptoms resolved. He is struggling with some right lateral thigh pain. Physical Exam Physical Exam: Patient is currently in bed. Is good strength testing. Has tenderness palpation of the right IT band. Results & Data Vital Signs (Past 12 Hours) Vital Signs Temp Pulse Resp BP Pulse Ox O2 Del Method 03/16/25 08:14 104/61 03/16/25 08:13 99/63 L 03/16/25 08:12 98/64 L 03/16/25 07:11 36.4 C L 88 18 169/82 H 94 Room Air 03/16/25 06:59 36.8 C 89 16 159/80 H 98 Room Air Queries Orthopedic Spine Acute Posthemorrhagic Anemia: Yes
--- NOTE | 2025-03-16 11:16 | Discharge Summary ---
Date of Service March 16, 2025 Admission HPI Per Admitting Provider This is a 65-year-old male with chronic persistent back and leg pain after failing since course of nonoperative care is here for surgical invention. Principal Diagnosis Lumbar spondylosis with radiculopathy Discharge Data Allergies Allergy/AdvReac Type Severity Reaction Status Date / Time No Known Allergies Allergy Verified 03/09/25 10:21 Consultations 03/09/25 18:36 Consult Hospitalist Routine 03/12/25 09:45 Consult Urology Routine Procedures Performed Operation Date: 03/09/25 11:25 Actual Procedures p T12-L3, L5-S1 Decompression and Fusion,(Not Applicable) - Salazar Fuller DO s L3-L5 Hardware Removal(Not Applicable) - Salazar Fuller DO Ordered Studies 03/09/25 11:25 FL lumbar spine 2-3V Routine Hospital Course (1) Multilevel lumbosacral spondylosis with radiculopathy: Patient underwent multilevel lumbar decompression fusion trial as well as due to orthopedic for postoperative. Posteriorly he progressed appropriately throughout his stay. Improvement of his leg pain. Back pain controlled. DOMENIC drain decreased greatly. Good strength testing. Separately discharged to rehab. Discharge orders instructions found in the chart for further review. Total Time Total Time Spent Total Time Spent (In Minutes): 20 minutes Discharge Plan Discharge Items Patient Disposition: Transfer Inpatient Rehab Fac Reason For Visit: Multilevel Lumbosacral Spondylosis with Radiculopa Discharge Diagnosis: Multilevel lumbosacral spondylosis with radiculopathy Activity: As commented below Non-emergency contact: Primary Care Provider Call non-emergency contact if: you have any medication questions Follow-up/Referrals: Be Allan [Primary Care Provider] - (Please contact your primary care office to make a follow up appointment.) Diet: Regular Addtl Attending Provider Instructions: ACTIVITY RECOMMENDATIONS: SELF CARE INSTRUCTIONS AFTER THORACIC/LUMBAR FUSIONS 1. You may walk to your tolerance. It is good exercise for your legs and back. Expect some back and intermittent leg aches and pains. 2. You may perform "counter-top" level activities (make a sandwich, ann marie with a project, etc.). 3. No bending or lifting of more than 10 pounds or back twisting of any nature (roll like a log when turning in bed). 4. You may ride in a car for 20-30 minutes at a time. No driving until after your first visit with your doctor. 5. Frequent changes of position and restricting sitting to 30 minutes at a time will help limit the amount of back spasms and stiffness you may experience. 6. You may discontinue the use of ambulatory aids (cane, crutches, etc.) once your strength and confidence allow. 7. You may operations coordinator the shower and let water strike your incision when you arrive home at least once daily. Do not take a tub bath, sit in a hot tub or go into a swimming pool until after your first recheck in the office. 8. You may resume previous diet. SPECIAL CARE INSTRUCTIONS: VERY IMPORTANT TO READ AND REVIEW A. Your surgical incision has been closed with a cosmetic suture under the skin that will dissolve in about 6 weeks. In 14 days, you can use a pair of clean scissors and cut the suture that is left outside of the skin at the ends of your incision. 1. The small skin tapes can be removed 7 days after surgery if they have not fallen off by that point. 2. You may keep the wound open to air as much as possible to promote healing after post-op day number 5 unless told otherwise by your doctor. 3. If you think the wound looks like it is becoming infected (redness or worsening drainage) and/or you are experiencing fever, chill or worsening back pain and muscle spasms, contact the office so that we may evaluate you as soon as possible. B. Complications are uncommon, but please contact us if you have any signs or symptoms of: 1. wound infection (fever higher than 102.5 degrees F, redness, separation of wound, drainage, or increasing pain from the incision) 2. blood clots in legs (pain, swelling, redness and warmth in legs) 3. urinary tract infection (fever higher than 102.5 degrees F, burning upon urination or increased frequency of urination) 4. nerve problems (inability to walk on your toes or heels, numbness, loss of bowel or bladder control) 5. any other symptoms that concern you C. Please call the office at if you have any concerns or questions about your operation or recovery. D. No smoking! Smoking drastically decreases the chance of a solid fusion. E. Do not take any anti-inflammatory medications (Indocin, Advil, Motrin, Aspirin, Naprosyn, etc.) as these may inhibit the chance of a solid fusion. Tylenol is okay to take for pain. MANAGING PAIN AFTER SPINAL SURGERY 1. Narcotic medication is intended for short-term use and will be provided for surgical pain. Surgical pain usually lasts for a period of 4-6 weeks. Narcotic medication includes Percocet, Vicodin, Darvocet, Tylenol #3 or Lortab. 2. Longer-term pain is more appropriately treated with non-narcotic medication such as Tylenol ES. 3. Muscle spasm is not appropriately treated with narcotics. Muscle relaxers such as Soma, Flexeril or Skelaxin can be used along with Tylenol ES. 4. Remember that we all live with some "aches and pains". This is not unusual or uncommon after an injury or as we get older. a. Back pain is expected and may include muscle spasms for 4 to 6 weeks after surgery. The pain should gradually improve. If the pain worsens for no apparent reason, please contact the office. b. Intermittent leg pain may also be experienced and should not be concerned about unless it worsens for no apparent reason. If so, please contact the office. 5. We will provide appropriate medication within the normal guidelines of their prescribed use. We will also be very cautious and aware of potential abuse and extended duration of patients' medication needs. a. Pain medications are for your comfort and to assist with sleep and rest so that the tissue can heal. They are not provided in order to return to normal activity and should not be used through the day. To do so or worsening pain at night can result from ongoing tissue damage and development of tolerance to the prescribed medicine. 6. Please allow 2-3 days to process refills. Prescriptions will not be mailed but must be picked up at the office. FOLLOW UP VISIT: Keep your scheduled follow-up appointment. Any questions, please call the office at . Addtl New Car Salesperson Provider Instructions: Please follow up with PCP in 1 week. Recommend repeat labs (CBC) in one week to recheck anemia (lower blood counts). Start daily iron supplement. Take with glass of orange juice. May cause dark stools and constipation. May use over the counter stool softener or Miralax daily as needed if become constipated. Ordonez catheter in place for urinary retention. Urology saw you in hospital and recommended to continue Ordonez catheter for 1 week and urology will arrange outpatient follow-up with their office for voiding trial and ongoing management. ADDRESS FOR [place] [facility] is [facility] [address], [place] [address] Pending Studies at Discharge: No Stand-Alone Forms: [facility], Smoking Cessation Skilled Items Patient informed of condition?: Yes DNR: No Discharge Level of Care: Acute rehab Communicable Disease: No Discharge Prognosis: Improving Lines: None Urinary Catheter: Yes Medications and DC Order Prescriptions: New tramadol 50 mg tablet 50 mg PO Q6H PRN (Reason: pain, moderate) Qty: 30 0RF oxycodone 5 mg tablet 5 mg PO Q6H PRN (Reason: pain) Qty: 30 0RF metoprolol tartrate 25 mg Tablet 12.5 mg PO DAILY Qty: 30 0RF ferrous sulfate 325 mg (65 mg iron) tablet 325 mg PO DAILY Qty: 30 0RF Discontinued naproxen sodium [Aleve] 220 mg Tablet 220 mg PO BID PRN (Reason: Pain) metoprolol tartrate 50 mg Tablet 50 mg PO QAM No Action cholecalciferol (vitamin D3) [Vitamin D3] 125 mcg (5,000 unit) Tablet 125 mcg PO DAILY Discharge Orders: Discharge Order (Routine); Ordered 03/16/25 Ordered By: Salazar Fuller Admission Data Admit Date/Time: 03/09/25 16:57 Attending Provider: Salazar Fuller Admit Provider: Salazar Fuller Primary Care Provider: Be Allan Other Providers: Corine Vargas; Salvador Hallman; [facility]
[2025-03-16 11:32] VITALS: BP 118/73; PULSE 76
== END 2025-03-16 13:52 | disposition alcohol treatment (31) | DRG 427 ==
LOC: ASU 10:01 → 3E 16:57
DX: R33.9 Retention of urine, unspecified; N13.9 Obstructive and reflux uropathy, unspecified; M47.26 Other spondylosis with radiculopathy, lumbar region; I10 Essential (primary) hypertension; M48.061 Spinal stenosis, lumbar region without neurogenic claudication; D62 Acute posthemorrhagic anemia; Z79.899 Other long term (current) drug therapy; K59.00 Constipation, unspecified; Z87.891 Personal history of nicotine dependence; I95.81 Postprocedural hypotension; N40.1 Benign prostatic hyperplasia with lower urinary tract symptoms